=== PATIENT | male | born 1970 | race Caucasian/White ===

== ENCOUNTER → 2016-07-16 | Outpatient (CLI) | payer OTHER ==
[~2016-07-16] MED LIST: ACET-1256 PO; AMOX875T PO; CGN5X PO; CLON0.5T3 PO; CTP1CL PO; FEXO1TAB49 PO; HYDR-5688 PO; HYDR2.5C37 TOP; IBUP-1050 PO; MULT-513 PO; OXYC-57 PO; PRED10TA PO; SNG10 PO; TRAZ50TA35 PO; VENL150T33 PO; VENL75CA73 PO; [UNRECOGNIZED DRUG - REMARK]
--- NOTE | 2016-07-16 13:55 | DIAGNOSTIC IMAGING REPORT ---
SINUSES MIN 3 VIEWS ROUTINE CLINICAL HISTORY: J32.9 Chronic sinusitis pain COMPARISON STUDY: 03/12/2013 FINDINGS: Negative study. All major sinuses are clear. IMPRESSION: Negative study Electronically signed by: Eugene Mayo M.D. 07/16/2016 1:53 PM Dictated Date/Time: 07/16/2016 1:53 PM
== END | disposition home or self-care (01) ==
LOC: C.RAD1850 13:40
PROVIDERS: ATTEND Internal Medicine
DX: J32.9 Chronic sinusitis, unspecified (principal)

== ENCOUNTER 2016-09-12 19:21 | Emergency (ER) | payer OTHER ==
[~2016-09-12] VITALS: Ht 193 cm; Wt 109.0 kg
[~2016-09-12 19:21] MED LIST changes: -AMOX875T PO; -CGN5X PO; -CTP1CL PO; -FEXO1TAB49 PO; -HYDR-5688 PO; -OXYC-57 PO; -PRED10TA PO; -SNG10 PO; -TRAZ50TA35 PO; -VENL150T33 PO; -VENL75CA73 PO; -[UNRECOGNIZED DRUG - REMARK]
[2016-09-12 19:28] VITALS: BP 150/107; PULSE 93; TEMP 36.6; O2SAT 97; Ht 193 cm; Wt 109.0 kg
[2016-12-18] MEDS ORDERED: [UNRECOGNIZED DRUG - REMARK] (16:12)
[2017-01-22] MEDS ORDERED: HYDR-5688 PO (09:23)
[2017-05-15] MEDS ORDERED: BENZ0.5T2 PO (16:34)
[2017-05-15] MEDS ORDERED: TRAZ50TA35 PO (16:56)
[2017-05-15] MEDS ORDERED: CTP1CL PO (17:34)
[2017-05-15] MEDS ORDERED: SNG10 PO (17:34)
[2017-05-15] MEDS ORDERED: FEXO1TAB49 PO (17:37)
[2017-05-15] MEDS ORDERED: VENL75CA73 PO (18:20)
[2017-05-15] MEDS ORDERED: HYDR25TA5 PO (22:14)
[2017-05-15] MEDS ORDERED: CELE1CAP30 PO (22:14)
[2017-05-15] MEDS ORDERED: VENL150C56 PO (22:14)
[2017-05-16] MEDS ORDERED: DOXY100C PO (00:39)
== END 2016-09-12 21:14 | disposition left against medical advice (07) ==
LOC: C.EDB 19:23
DX: R07.9 Chest pain, unspecified (principal); Z53.21 Procedure and treatment not carried out due to patient leaving prior to being seen by health care provider

== ENCOUNTER → 2016-11-18 | Outpatient (CLI) | payer OTHER ==
[~2016-11-18] MED LIST changes: +AMOX875T PO; +BENZ0.5T2 PO; +CELE1CAP30 PO; +CTP1CL PO; +DOXY100C PO; +FEXO1TAB49 PO; +HYDR-5688 PO; +HYDR25TA5 PO; +OXYC-57 PO; +PRED10TA PO; +SNG10 PO; +TRAZ50TA35 PO; +VENL150C56 PO; +VENL150T33 PO; +VENL75CA73 PO; +[UNRECOGNIZED DRUG - REMARK]
--- NOTE | 2016-11-18 15:10 | DIAGNOSTIC IMAGING REPORT ---
CHEST 2 VIEWS ROUTINE CLINICAL HISTORY: COUGH COMPARISON STUDY: 04/27/2015 FINDINGS: The heart is mildly enlarged. There is no failure. There is no focal pulmonary consolidation. There is a suboptimal inspiration with hypoventilatory changes the lung bases. No pleural effusions are visualized.[ IMPRESSION: Mild cardiomegaly. Poor inspiration. No evidence of focal pulmonary consolidation. Electronically signed by: Devonte Ambriz M.D. 11/18/2016 3:09 PM Dictated Date/Time: 11/18/2016 3:09 PM
== END | disposition home or self-care (01) ==
LOC: C.RAD1850 14:37
PROVIDERS: ATTEND Physician Assistant Medical
DX: R05 Cough (principal)

== ENCOUNTER 2016-11-21 16:13 | Emergency (ER) | payer OTHER ==
[~2016-11-21] VITALS: Ht 190.5 cm; Wt 112.5 kg
[~2016-11-21 16:13] MED LIST changes: -AMOX875T PO; -BENZ0.5T2 PO; -CELE1CAP30 PO; -CTP1CL PO; -DOXY100C PO; -FEXO1TAB49 PO; -HYDR-5688 PO; -HYDR25TA5 PO; -OXYC-57 PO; -PRED10TA PO; -SNG10 PO; -TRAZ50TA35 PO; -VENL150C56 PO; -VENL150T33 PO; -VENL75CA73 PO; -[UNRECOGNIZED DRUG - REMARK]
[2016-11-21 16:20] VITALS: TEMP 36.6; Ht 190.5 cm; Wt 112.5 kg
[2016-11-21] MEDS ORDERED: ALBUTEROL 0.5% NEB SOLN 2.5 MG/0.5 ML VIAL INH STA (17:31)
[2016-11-21] MEDS ORDERED: ALBUTEROL HFA 8 GM INHALER INH STA (17:31)
[2016-11-21] MEDS ORDERED: HYDR-5688 PO (17:34)
[2016-11-21] MEDS ORDERED: AMOX875T PO (17:34)
[2016-11-21] MEDS ORDERED: VENL150T33 PO (17:34)
[2016-11-21] MEDS ORDERED: PRED10TA PO (17:34)
[2016-11-21] MEDS ORDERED: SODIUM CHLORIDE 0.9% 1000ML 1,000 ML IV STA (17:47)
[2016-11-21 17:55] LABS: BASO % 0.3 %; BASO ABS # 0.03 K/uL (0-0.2); COMPLETE YES; EOS % 0.1 %; HEMATOCRIT 43.8 % (42-52); IG% 0.2 %; LYMPH % 18.8 %; LYMPH ABS # 1.69 K/uL (1.2-3.4); MEAN CELL VOLUME 88.3 fL (80-100); MEAN CORPUSCULAR HEMOGLOBIN 31.3 pg (25-34); MEAN CORPUSCULAR HGB CONC 35.4 g/dl (32-36); MEAN PLATELET VOLUME 11.4 fL (7.4-10.4); MONO % 6.9 %; NEUT % 73.7 %; PLATELET COUNT 230 K/uL (130-400); RED BLOOD COUNT 4.96 M/uL (4.7-6.1); WHITE BLOOD COUNT 8.97 K/uL (4.8-10.8)
[2016-11-21 18:05] VITALS: O2SAT 96
[2016-11-21 18:12] LABS: ALT/SGPT 88 U/L (12-78); AST/SGOT 45 U/L (15-37); BLOOD UREA NITROGEN 16 mg/dl (7-18); BUN/CREATININE RATIO 17.1 (10-20); CALCIUM 8.9 mg/dl (8.5-10.1); CARBON DIOXIDE 26 mmol/L (21-32); CHLORIDE 105 mmol/L (98-107); CREATININE 0.93 mg/dl (0.60-1.40); GLUCOSE 95 mg/dl (70-99); POTASSIUM 4.3 mmol/L (3.5-5.1); SODIUM 140 mmol/L (136-145)
[2016-11-21 18:17] LABS: ALKALINE PHOSPHATASE 74 U/L (45-117)
--- NOTE | 2016-11-21 18:39 | DIAGNOSTIC IMAGING REPORT ---
HEAD CT NONCONTRAST CT DOSE: 537.48 mGy.cm HISTORY: Pt c/o sinus pressure TECHNIQUE: Multiaxial CT images of the head were performed without the use of intravenous contrast. Comparison: None. Findings: The paranasal sinuses and mastoid air cells are clear. The calvarium and skull base are intact. The ventricles and sulci are within normal limits. There is no mass, hematoma, midline shift, or acute infarct. Impression: No acute intracranial abnormality. Minimal mucosal thickening left ethmoid sinus Electronically signed by: Eugene Mayo M.D. 11/21/2016 6:38 PM Dictated Date/Time: 11/21/2016 6:37 PM
[2016-11-21] MEDS ORDERED: OXYC-57 PO (19:08)
[2016-11-21] MEDS ORDERED: PERCOCET HOME PACK PO ONE ×2 (19:15)
--- NOTE | 2016-11-21 19:42 | EMERGENCY ROOM VISIT NOTE ---
History Report prepared by Lolis: Mague Cook Under the Supervision of: Dr. Larry Graham M.D. First contact with patient: 17:01 Chief Complaint: HEAD PAIN Stated Complaint: SEVERE PAIN IN HEAD, FEVER History of Present Illness The patient is a 46 year old male who presents to the Emergency Room with complaints of persistent head pain starting 1 week ago. He reports heat and pressure in his head and spreading into his face. He rates his discomfort as a 7 /10 in severity. His face is bloated, red, and hot to touch. He has a headache. It is not the worse headache of his life. He reports he is trying to stop drinking coca cola which is leading him to have headache. He also notes that he is dehydrated and his urine is orange-yellow. He is trying to drink more water, but is still dehydrated. He reports chest tightness and "jittering" in his chest. He denies any rhinorrhea. He was started on prednisone and antibiotics for a sinus infection several days ago. He also had a chest X-ray which was normal. He reports he has many issues with his sinuses and allergies. He is being taken off his allergy shots. He denies any history of smoking. Source of History: patient Onset: 1 week ago Position: head Symptom Intensity: 7/10 Quality: pressure Timing: other (persistent) Associated Symptoms: + fevers, + headache Note: Pt reports dark urine, chest tightness and jittering, facial bloating. Pt denies rhinorrhea. Review of Systems See HPI for pertinent positives & negatives. A total of 10 systems reviewed and were otherwise negative. Past Medical & Surgical Medical Problems: (1) Appendectomy (2) Operation on nasal septum Family History Cancer Diabetes mellitus Hypertension Social History Smoking Status: Never Smoker Marital Status: Housing Status: lives with significant other Occupation Status: employed Current/Historical Medications Scheduled Amoxicillin & Pot Clavulanate (Augmentin 875-125 mg), 1 TAB PO BID Benztropine Mesylate (Benztropine Mesylate), 0.5 MG PO TID Clonidine Hcl (Catapres), 0.2 MG PO QPM Fexofenadine Hcl (Cecily Allergy), 180 MG PO QAM Montelukast Sod (Montelukast Sodium), 10 MG PO HS Prednisone (Prednisone), 10 MG PO UD Trazodone Hcl (Trazodone), 25 MG PO HS Venlafaxine Hcl (Venlafaxine Extended Rel), 75 MG PO DAILY Venlafaxine Hcl (Venlafaxine Hcl Er), 150 MG PO DAILY Scheduled PRN Hydrocodone/Acetaminophen 5MG/325MG (Garvin 5MG/325MG), 1 TAB PO Q6H PRN for Pain Oxycodone/Acetaminophen 5MG/325MG (Percocet 5MG/325MG), 1-2 TAB PO Q4H PRN for Pain Allergies Coded Allergies: Ibuprofen (Verified Allergy, Intermediate, LIPS SWELL, 04/07/16) BRAND ONLY Nut Tree (Unverified Allergy, Unknown, LIPS SWELLING, 04/07/16) Uncoded Allergies: FRUITS FROM A TREE (Allergy, Intermediate, LIPS SWELL, 05/02/14) "ANYTHING FROM A TREE" Physical Exam Vital Signs Date Time Temp Pulse Resp B/P (MAP) Pulse Ox O2 Delivery O2 Flow Rate FiO2 11/21/16 19:53 69 19 153/107 97 Room Air 11/21/16 18:39 79 18 164/104 95 Room Air 11/21/16 18:05 96 Room Air 11/21/16 16:20 36.6 88 18 141/94 96 Room Air Physical Exam GENERAL: Patient is a healthy-appearing well-nourished HEAD: Normocephalic atraumatic EYES: Ocular movements intact pupils equal and react to light OROPHARYNX mucous membranes are moist no exudates present no erythema or edema present NECK: Supple no nuchal rigidity. No evidence of meningitis or encephalitis. CHEST: Good equal expansion LUNGS: Clear and equal to auscultation CARDIAC: Normal S1 and S2 ABDOMEN: Soft nontender no guarding BACK: No CVA tenderness EXTREMITIES: No pain upon palpation normal muscle strength in all groups no clubbing cyanosis or edema NEURO: Patient is following commands is answering questions appropriately. Alert and oriented x3 Cranial Nerves 2-12 grossly intact Medical Decision & Procedures ER Provider Diagnostic Interpretation: Radiology results as stated below per my review and radiologist interpretation: HEAD CT NONCONTRAST CT DOSE: 537.48 mGy.cm HISTORY: Pt c/o sinus pressure TECHNIQUE: Multiaxial CT images of the head were performed without the use of intravenous contrast. Comparison: None. Findings: The paranasal sinuses and mastoid air cells are clear. The calvarium and skull base are intact. The ventricles and sulci are within normal limits. There is no mass, hematoma, midline shift, or acute infarct. Impression: No acute intracranial abnormality. Minimal mucosal thickening left ethmoid sinus Electronically signed by: Eugene Mayo M.D. 11/21/2016 6:38 PM Dictated Date/Time: 11/21/2016 6:37 PM Laboratory Results 11/21/16 17:45 Red Blood Count 4.96, Mean Corpuscular Volume 88.3, Mean Corpuscular Hemoglobin 31.3, Mean Corpuscular Hemoglobin Concent 35.4, Mean Platelet Volume 11.4, Neutrophils (%) (Auto) 73.7, Lymphocytes (%) (Auto) 18.8, Monocytes (%) (Auto) 6.9, Eosinophils (%) (Auto) 0.1, Basophils (%) (Auto) 0.3, Neutrophils # (Auto) 6.60, Lymphocytes # (Auto) 1.69, Monocytes # (Auto) 0.62, Eosinophils # (Auto) 0.01, Basophils # (Auto) 0.03 11/21/16 17:45 Test 11/21/16 17:45 White Blood Count 8.97 K/uL (4.8-10.8) Red Blood Count 4.96 M/uL (4.7-6.1) Hemoglobin 15.5 g/dL (14.0-18.0) Hematocrit 43.8 % (42-52) Mean Corpuscular Volume 88.3 fL (80-100) Mean Corpuscular Hemoglobin 31.3 pg (25-34) Mean Corpuscular Hemoglobin Concent 35.4 g/dl (32-36) Platelet Count 230 K/uL (130-400) Mean Platelet Volume 11.4 fL (7.4-10.4) Neutrophils (%) (Auto) 73.7 % Lymphocytes (%) (Auto) 18.8 % Monocytes (%) (Auto) 6.9 % Eosinophils (%) (Auto) 0.1 % Basophils (%) (Auto) 0.3 % Neutrophils # (Auto) 6.60 K/uL (1.4-6.5) Lymphocytes # (Auto) 1.69 K/uL (1.2-3.4) Monocytes # (Auto) 0.62 K/uL (0.11-0.59) Eosinophils # (Auto) 0.01 K/uL (0-0.5) Basophils # (Auto) 0.03 K/uL (0-0.2) RDW Standard Deviation 39.6 fL (36.4-46.3) RDW Coefficient of Variation 12.4 % (11.5-14.5) Immature Granulocyte % (Auto) 0.2 % Immature Granulocyte # (Auto) 0.02 K/uL (0.00-0.02) Anion Gap 9.0 mmol/L (3-11) Est Creatinine Clear Calc Drug Dose 132.9 ml/min Estimated GFR () 112.9 Estimated GFR (Non- 97.4 BUN/Creatinine Ratio 17.1 (10-20) Calcium Level 8.9 mg/dl (8.5-10.1) Total Bilirubin 0.3 mg/dl (0.2-1) Direct Bilirubin 0.1 mg/dl (0-0.2) Aspartate Amino Transf (AST/SGOT) 45 U/L (15-37) Alanine Aminotransferase (ALT/SGPT) 88 U/L (12-78) Alkaline Phosphatase 74 U/L (45-117) Total Creatine Kinase 73 U/L (39-308) Creatine Kinase MB 0.7 ng/ml (0.5-3.6) Creatine Kinase MB Ratio 1.0 (0-3.0) Troponin I < 0.015 ng/ml (0-0.045) Total Protein 8.2 gm/dl (6.4-8.2) Albumin 4.2 gm/dl (3.4-5.0) Lipase 146 U/L (73-393) Labs reviewed by ED physician. Medications Administered Medications (Trade) Dose Ordered Sig/Jessica Route Start Time Stop Time Status Last Admin Dose Admin Albuterol (Ventolin Hfa Inhaler) 2 puffs NOW STAT INH 11/21/16 17:31 11/21/16 17:34 DC 11/21/16 17:31 2 PUFFS Albuterol Sulfate (Ventolin 0.5% 2.5MG/0.5ML Neb) 2.5 mg NOW STAT INH 11/21/16 17:31 11/21/16 17:34 DC 11/21/16 17:31 2.5 MG Sodium Chloride 1,000 ml @ 999 mls/hr Q1H1M STAT IV 6/8/17 17:47 11/21/16 18:47 DC 11/21/16 17:47 999 MLS/HR Oxycodone/ Acetaminophen (Percocet 5/ 325MG Home Pack) 1 homepack UD ONCE PO 11/21/16 19:15 11/21/16 19:16 DC 11/21/16 19:51 1 HOMEPACK ECG Indication: chest pain Rate (beats per minute): 74 Rhythm: normal sinus Findings: no acute ischemic change, no ectopy ED Course 1724: Past medical records reviewed. The patient was evaluated in room C4. A complete history and physical examination was performed. 1730: Albuterol Sulfate 2.5 mg INH, Albuterol 2 puffs INH. 1746: NSS 1000 ml @ 999 mls/hr IV. 1909: Upon reexamination the patient is resting comfortably. I discussed results and treatment plan with the patient. He verbalizes agreement and understanding. The patient is ready for discharge. 1914: Oxycodone/Acetaminophen 1 homepack PO, Oxycodone/Acetaminophen 1 homepack PO. Medical Decision Differential diagnosis: Etiologies such as migraine headache, meningitis, sinusitis, CO exposure, ICH, SAH, infection, tumor, headache, sinus thrombosis, arterial dissection, as well as others were entertained. Medication Reconciliation: I attest that I have personally reviewed the patient' s current medication list Blood Pressure Screening: Patient was found to have an elevated blood pressure and was referred to their primary care doctor for recheck and further treatment This is a 46-year-old male who presents emergency department complaining of sinusitis-like pressure. The patient has no evidence of meningitis encephalitis on examination. He is coughing therefore he was given an albuterol inhaler along with up-year-old treatment. Repeat examination revealed improvement the patient's symptoms. The patient is already on Augmentin as well as prednisone. I agree that the patient should continue taking this along with his allergy medication. I recommended follow-up with your nose and throat. I will note that the patient is afebrile here and has a normal white blood cell count. I recommended the patient return to the emergency department he develops severe head and neck pain. Patient and are in agreement with the treatment plan. Impression Primary Impression: Sinusitis Scribe Attestation The scribe's documentation has been prepared under my direction and personally reviewed by me in its entirety. I confirm that the note above accurately reflects all work, treatment, procedures, and medical decision making performed by me. Departure Information Dispostion Home / Self-Care Prescriptions Oxycodone/Acetaminophen 5MG/325MG (PERCOCET 5MG/325MG) Tab 1-2 TAB PO Q4H Y for Pain, #14 TAB Prov: Larry Graham MD 11/21/16 Referrals Usman James M.D. (PCP) Lulú Mccormick M.D. Fredy Stafford M.D. Forms HOME CARE DOCUMENTATION FORM, IMPORTANT VISIT INFORMATION, WORK / SCHOOL INSTRUCTIONS Patient Instructions ED Sinusitis Abx Tx, My [facility], Sinusitis Causes, Sinusitis Prevent, Sinusitis Self Care Additional Instructions Follow up with Dr Mccormick's office Use inhaler twice every 6 hours Continue other medicines as prescibed You were found to have an elevated blood pressure today (>120 sytolic or >90 diastolic). Per medicare guidelines, you need to follow up with this blood pressure screening with your Primary Care Physician (PCP). For a new PCP call [phone]. You received narcotic or benzodiazepene medication while in the emergency room today. Do not drive, operate heavy machinery, or drink alcohol under the influence of this medication. Take 600 mg Ibuprofen every 6 hours Take Percocet for breakthrough pain You have been examined and treated today on an emergency basis only. This is not a substitute for, or an effort to provide, complete comprehensive medical care. It is impossible to recognize and treat all injuries or illnesses in a single emergency department visit. It is therefore important that you follow up closely with Dr James. Call as soon as possible for an appointment. Thank you for your time and consideration. I look forward to speaking with you again soon. Please don't hesitate to call us if you have any questions. Problem Qualifiers Primary Impression: Sinusitis Sinusitis location: ethmoidal Chronicity: unspecified Qualified Codes: J32.2 - Chronic ethmoidal sinusitis
[2016-11-21 19:53] VITALS: BP 153/107; PULSE 69; O2SAT 97
[2016-12-18] MEDS ORDERED: [UNRECOGNIZED DRUG - REMARK] (16:12)
[2017-01-22] MEDS ORDERED: HYDR-5688 PO (09:23)
[2017-05-15] MEDS ORDERED: BENZ0.5T2 PO (16:34)
[2017-05-15] MEDS ORDERED: TRAZ50TA35 PO (16:56)
[2017-05-15] MEDS ORDERED: SNG10 PO (17:34)
[2017-05-15] MEDS ORDERED: CTP1CL PO (17:34)
[2017-05-15] MEDS ORDERED: FEXO1TAB49 PO (17:37)
[2017-05-15] MEDS ORDERED: VENL75CA73 PO (18:20)
[2017-05-15] MEDS ORDERED: VENL150C56 PO (22:14)
[2017-05-15] MEDS ORDERED: HYDR25TA5 PO (22:14)
[2017-05-15] MEDS ORDERED: CELE1CAP30 PO (22:14)
[2017-05-16] MEDS ORDERED: DOXY100C PO (00:39)
== END 2016-11-21 19:56 | disposition home or self-care (01) ==
LOC: C.EDB 16:13 → C.EDC 19:56
DX: J32.9 Chronic sinusitis, unspecified (principal); Z98.890 Other specified postprocedural states; Z79.899 Other long term (current) drug therapy; Z88.6 Allergy status to analgesic agent; Z91.018 Allergy to other foods; Z80.9 Family history of malignant neoplasm, unspecified; Z83.3 Family history of diabetes mellitus; Z82.49 Family history of ischemic heart disease and other diseases of the circulatory system

== ENCOUNTER → 2017-01-22 | Day surgery (SDC) | payer OTHER ==
[2016-12-18 15:41] VITALS: BMI 29.0
--- NOTE | 2017-01-21 18:37 | HISTORY & PHYSICAL EXAMINATION ---
DATE OF ADMISSION: 01/22/2017 CHIEF COMPLAINT: Chronic left knee pain. HISTORY OF PRESENT ILLNESS: This is a 46-year-old male patient of Dr. Galvez, complaining of chronic left knee pain, longstanding, now progressively getting worse. The patient has failed conservative treatment including anti-inflammatories and physical therapy. The patient has been diagnosed with left knee pain with loose body and arthritis. The patient wishes to proceed with a left knee arthroscopy, removal of loose body and chondroplasty. PAST MEDICAL HISTORY: Hypertension, hypercholesterolemia, and anxiety. SOCIAL HISTORY: Nonsmoker and nondrinker. FAMILY HISTORY: Noncontributory. PAST SURGICAL HISTORY: Left knee surgery. MEDICATIONS: 1. Effexor 175 mg daily. 2. Trazodone 50 mg daily. 3. Clonidine 0.1 mg daily. 4. benztropine 0.5 mg daily. ALLERGIES: MOTRIN. PHYSICAL EXAMINATION: GENERAL: Well-developed and well-nourished 46-year-old male in no acute distress. He is alert and oriented x3 and pleasant. HEENT: Normocephalic and atraumatic. Extraocular motions are intact. Pupils are equal and reactive to light. HEART: Regular rate and rhythm. No murmurs appreciated. LUNGS: Clear. ABDOMEN: Soft and nontender. Bowel sounds present. EXTREMITIES: Left knee reveals medial joint line tenderness with passive painful range of motion. He has crepitation with passive range of motion. He has 5/5 strength with pain. NEUROLOGIC: Neurovascularly, he is intact in his left lower extremity. DIAGNOSES: Left knee osteoarthritis with the presence of loose bodies. He also has a history of hypertension, hypercholesterolemia, and anxiety. PLAN: The patient was advised of his diagnoses. Indications, risks, benefits, and postop course have all been reviewed. The patient wishes to proceed with a left knee arthroscopic loose body removal and chondroplasty. Necessary consent forms, preoperative testing and clearances will be obtained. JODEE
[~2017-01-22] VITALS: Ht 193 cm; Wt 109.1 kg
[~2017-01-22] MED LIST changes: -ACET-1256 PO; +ATROPINE SULFATE 0.1 MG/ML 5ML SYR IV PRN; +BUPIVACAINE/EPINEPHRINE 0.5% MPF 1:200,000 10 ML VIAL ONE; +CEFAZOLIN 2000 MG/60 ML D5W IV SCH; +CGN5X PO; -CLON0.5T3 PO; +CTP1CL PO; +DEXAMETHASONE SOD INJ 4 MG/ML VIAL ONE; +EpHEDrine SULFATE INJ 50 MG/ML AMP IV PRN; +FENTANYL CITRATE INJ 50 MCG/1 ML 2 ML VIAL IV PRN; +FENTANYL CITRATE INJ 50 MCG/1 ML 2 ML VIAL ONE; +FEXO1TAB49 PO; +HYDR-5688 PO; -HYDR2.5C37 TOP; +HYDROCODONE/ACETAMOPHEN 5/325MG TAB PO PRN; -IBUP-1050 PO; +LACTATED RINGER'S 1000ML 1,000 ML IV SCH; +LIDOCAINE HCL 2% 2 ML VIAL (20MG/ML) ONE; +MIDAZOLAM HCL 1 MG/ML 2ML VIAL ONE; -MULT-513 PO; +MoRPHine SULFATE 2 MG/ML CARP IV PRN; +ONDANSETRON INJ 2 MG/ML 2 ML VIAL IV PRN; +ONDANSETRON INJ 2 MG/ML 2 ML VIAL ONE; +PROPOFOL IV EMULSION 10 MG/ML 20 ML VIAL IV ONE; +SNG10 PO; +TRAZ50TA35 PO; +VENL150T33 PO; +VENL75CA73 PO; +[UNRECOGNIZED DRUG - REMARK]
[2017-01-22 05:47] VITALS: BP 148/97; PULSE 66; TEMP 36.4; O2SAT 95; Ht 193 cm; Wt 109.1 kg
--- NOTE | 2017-01-22 07:11 | History & Physical Bridge Note ---
H&P Re-Evaluation Bridge Note: I have examined the patient, reviewed the History & Physical and in the interval since the performance of the History & Physical I have noted the following changes of clinical significance: No changes noted
--- NOTE | 2017-01-22 07:20 | Discharge Instructions ---
Discharge Instructions Date of Service Jan 22, 2017. Visit Reason for Visit: Left Knee Loose Body, Primary Osteoarthritis Discharge Discharge Diagnosis / Problem: Left Knee Loose Body; Osteoarthritis Discharge Goals Goal(s): Decrease discomfort, Improve function Activity Recommendations Activity Limitations: per Instructions/Follow-up section Weightbearing Status: Left weightbearing (as tolerated) ACTIVITY RECOMMENDATIONS: * You may walk on the leg with or without crutches as comfort permits. * Bending of the knee should start at once. * Do not shower for 48 hours following surgery. SPECIAL CARE INSTRUCTIONS: * You may cleanse the skin adjacent to the small wounds with soap and water at the time of the first dressing change. * The application of an ice bag to the front and sides of the knee will decrease swelling and discomfort for the first 48 hours. * The small incisions may be sore and develop bruising. This bruising does not require any special care. SPECIAL PRECAUTIONS: * If you experience unusual pain unrelieved by prescriptions, temperature elevation (100 degrees F. or above) or progressive swelling or bleeding, you should contact our office at for further evaluation. * You may have been prescribed pain medication. If you experience nausea and/or fine skin rash, discontinue this medication and contact our office at for an alternate medication. DRESSING: * Dressing should be comfortable and absorb any leakage of fluid and/or blood. * The dressing may become moist or bloodstained. * Dressing may be removed 48 hours after surgery and bandaids placed over the small surgical incisions. If can be removed sooner if it becomes very soiled or loose. * Bandaids may be used over next several days as needed and can be discontinued when there is not further drainage from the wounds. FOLLOW UP VISIT: If appointment is not already scheduled: Please call [facility] to make a follow-up appointment for your surgery at . Anesthesia . Post Anesthesia Instructions: If you have had General Anesthesia or IV Sedation: * Do not drive today. * Resume driving when surgeon permits. * Do not make important decisions or sign legal documents today. * Call surgeon for: 1. Temperature elevations greater than 101 degrees F. 2. Uncontrollable pain. 3. Excessive bleeding. 4. Persistent nausea and vomiting. 5. Medication intolerance (nausea, vomiting or rash). * For nausea and vomiting use only clear liquids such as: tea, soda, bouillon until nausea subsides, then gradually increase diet as tolerated. * If you have any concerns or questions, call your surgeon's office. If physician is unavailable and it is an emergency, call 911 or go to the nearest emergency room. . Diet Recommendations Recommended Home Diet: resume previous diet Pending Studies Studies pending at discharge: no Medical Emergencies . Who to Call and When: Medical Emergencies: If at any time you feel your situation is an emergency, please call 911 immediately. . Non-Emergent Contact Non-Emergency issues call your: Surgeon Call Non-Emergent contact if: temperature is above 101.5, your pain is not controlled, your pain is worsening, wound has increased drainage, wound has increased redness . . "Provider Documentation" section prepared by Fidel Boyd. . [place] Drug Monitoring Program Search Results: patient reviewed within database, no issues identified
--- NOTE | 2017-01-22 08:41 | [facility] Post Operative Brief Note ---
Immediate Operative Summary Operative Date Jan 22, 2017. Pre-Operative Diagnosis Left knee osteoarthritis presence of loose bodies Post-Operative Diagnosis Left knee osteoarthritis presence of loose bodies Procedure(s) Performed Left Knee Arthroscopy Excision Loose Foreign Body Chondroplasty Surgeon Dr Galvez Oim Consultant Surgeon(s) None Estimated Blood Loss 5CC Findings 2 cm oval large loose body and grade 3-4 djd medial and patella Specimens As per Surgeon A. Loose Foreign Body Drains none Anesthesia general Complication(s) None Disposition Recovery Room / PACU
--- NOTE | 2017-01-22 08:47 | Discharge Instructions ---
Discharge Instructions Date of Service Jan 22, 2017. Admission Reason for Admission: Left Knee Loose Body, Primary Osteoarthritis Discharge Discharge Diagnosis / Problem: oa left knee loose body Discharge Goals Goal(s): Decrease discomfort, Improve function, Increase independence Activity Recommendations Activity Limitations: resume your previous activity . Instructions / Follow-Up Instructions / Follow-Up 8-10 dys Current Hospital Diet Patient's current hospital diet: Discharge Diet Recommended Diet: Regular Diet Procedures Procedures Performed: Left Knee Arthroscopy Excision Loose Foreign Body Chondroplasty Pending Studies Studies pending at discharge: no Work Instructions Return To Work: after follow-up Lifting Limitations: none Additional Instructions: off Medical Emergencies . Who to Call and When: Medical Emergencies: If at any time you feel your situation is an emergency, please call 911 immediately. . Non-Emergent Contact Non-Emergency issues call your: Primary Care Provider Call Non-Emergent contact if: temperature is above 101.5, your pain is not controlled, your pain is worsening, wound has increased drainage, wound has increased redness [phone] . "Provider Documentation" section prepared by Xavier Galvez. . VTE Core Measure Inpt VTE Proph given/why not?: Treatment not indicated [place] Drug Monitoring Program Search Results: no issues identified
[2017-01-22 09:38] VITALS: BP 157/94; PULSE 79; TEMP 36.7; O2SAT 93
[2017-01-22 10:10] VITALS: BP 151/88; PULSE 80; TEMP 36.7; O2SAT 94
[2017-01-22 10:35] VITALS: BP 140/87; PULSE 78; TEMP 36.5; O2SAT 95
--- NOTE | 2017-01-22 12:12 | Anesthesiology Progress Note ---
Anesthesia Post Op Note Date & Time Jan 22, 2017 at 12:11 Vital Signs Pain Intensity: 2 Vital Signs Past 12 Hours Date Time Temp Pulse Resp B/P (MAP) Pulse Ox O2 Delivery O2 Flow Rate FiO2 01/22/17 10:35 36.5 78 20 140/87 95 Room Air 01/22/17 10:10 36.7 80 18 151/88 94 Room Air 01/22/17 09:38 36.7 79 18 157/94 93 Room Air 01/22/17 09:25 36.6 78 16 134/89 94 Room Air Oxymask 01/22/17 09:15 78 16 127/86 93 Room Air Oxymask 01/22/17 09:05 76 16 154/100 95 Room Air Oxymask 01/22/17 08:55 79 16 149/100 97 Oxymask 10 01/22/17 08:45 76 16 149/99 97 Oxymask 10 01/22/17 08:37 36.3 80 16 154/97 99 Oxymask 10 01/22/17 05:47 36.4 66 20 148/97 (114) 95 Room Air Notes Mental Status: alert / awake / arousable, participated in evaluation Pt Amnestic to Procedure: Yes Nausea / Vomiting: adequately controlled Pain: adequately controlled Airway Patency, RR, SpO2: stable & adequate BP & HR: stable & adequate Hydration State: stable & adequate Anesthetic Complications: no major complications apparent
--- NOTE | 2017-01-22 22:08 | OPERATIVE REPORT ---
DATE OF OPERATION: 01/22/2017 INDICATION FOR PROCEDURE: A 46-year-old male with long history of left knee pain. He has had a previous procedure on his medial femoral condyle. He had a chronic medial femoral condyle lesion. He since the time of the surgery, has developed locking in his knee and radiographically appears to have a calcified loose body in the suprapatellar pouch. He has an MRI demonstrating subchondral bone edema in the area of the medial femoral condyle lesion, consistent with osteoarthritic lesion of his medial femoral condyle as well. The patient has had chronic locking and pain. He still has maintained joint spaces, but has some osteoarthritic changes in the medial compartment radiographically. PREOPERATIVE DIAGNOSIS: Osteoarthritis, left knee large osteochondral loose body, status post prior arthroscopic procedure on his medial femoral condyle, probable microfracture. POSTOPERATIVE DIAGNOSIS: Same with degenerative joint disease patellofemoral joint, medial compartment and lateral compartment with large loose body. Loose body measures 2 cm x 1.5 cm. PROCEDURE: Left knee arthroscopy with removal of large loose body 2 x 1.5 cm with chondroplasty medial compartment and patellofemoral joint. SURGEON: Dr. Galvez. DINKEY OPERATOR: None. ANESTHESIA: General. OPERATIVE PROCEDURE: The patient was taken to the operating room and anesthetized with general anesthetic. Pneumatic tourniquet was placed on the left upper thigh. His left leg was sterilely prepped and draped in usual sterile fashion. Exam demonstrated he had no effusion and stable ligaments. He had good range of motion still. His left lower extremity was elevated, exsanguinated with Esmarch bandage. Pneumatic tourniquet was raised to 325 mmHg. Arthroscopy was started with an inferior medial and inferior lateral arthroscopy portal and we made a superior lateral arthroscopy portal which we had to widen to remove the large loose body. On inspection of the knee, there was a large loose body in the suprapatellar pouch, it was completely mobile but it was osteochondral based on x-ray. It was large oval loose body, which was at least 2 cm in length and about 1.5 cm in width and thickness was about 4 mm. The patella had some grade 3 chondromalacia patellae in the central region. The medial femoral condyle and the patellofemoral joint was all grade 3 wear. The medial femoral condyle on the flexion surface had a large area of an osteochondral lesion that was previously there. There was fibrocartilage at its base, but there were very loose flaps of unstable fibrocartilage around the periphery of this lesion, under which there was a grade 4 DJD. Adjacent to the lesion, far medial side, there was a grade 3 wear. The cruciate ligaments were intact. The tibial plateau had significant cracks and fissures and 1 loose piece of articular cartilage that was completely unstable and this was about a 4-5 mm diameter grade 4 lesion underlying that. In the lateral compartment, there was grade 3 fraying toward the medial aspect of the tibial spine and lateral tibial plateau and the meniscus was normal and stable and lateral femoral condyle was intact with normal cartilage. The medial meniscus was also stable and intact with no tears. First thing we did was to make a superior lateral portal and widen that slightly with a hemostat. I was able to go ahead and grasp the loose body and remove it. Then we placed some stitches of nylon and an outflow cannula to help stop the fluid from extravasating. We did have a little fluid extravasation into the subcutaneous tissues there because of that. I went ahead and performed a chondroplasty of the grade 3 areas with a 4.5 resector blade and removed the loose flaps of the very unstable fibrocartilage around the outer rim of the lesion. Unfortunately, basically showed exposed bone underneath that. The loose fragment on the tibial plateau was removed. We split down all grade 3 areas on the patella and the femoral condyle, trochlear groove area. The knee was copiously irrigated and free of all debris. The knee was injected with 30 mL of Marcaine with epinephrine. Port sites were closed with nylon sutures. Sterile dressings were applied including an Fer wrap from the foot to the thigh and a compressive wrap about the operative knee. The patient tolerated the procedure well. I attest to the content of the Intraoperative Record and any orders documented therein. Any exception s are noted below.
== END | disposition home or self-care (01) ==
LOC: C.ACU 05:22
PROVIDERS: ATTEND Orthopaedic Surgery Sports Medicine
DX: M17.12 Unilateral primary osteoarthritis, left knee (principal); I10 Essential (primary) hypertension; E78.00 Pure hypercholesterolemia, unspecified; F41.9 Anxiety disorder, unspecified; Z79.899 Other long term (current) drug therapy

== ENCOUNTER → 2017-06-23 | Outpatient (CLI) | payer OTHER ==
[~2017-06-23] MED LIST changes: -ATROPINE SULFATE 0.1 MG/ML 5ML SYR IV PRN; +BENZ0.5T2 PO; -BUPIVACAINE/EPINEPHRINE 0.5% MPF 1:200,000 10 ML VIAL ONE; -CEFAZOLIN 2000 MG/60 ML D5W IV SCH; +CELE1CAP30 PO; -CGN5X PO; -DEXAMETHASONE SOD INJ 4 MG/ML VIAL ONE; -EpHEDrine SULFATE INJ 50 MG/ML AMP IV PRN; -FENTANYL CITRATE INJ 50 MCG/1 ML 2 ML VIAL IV PRN; -FENTANYL CITRATE INJ 50 MCG/1 ML 2 ML VIAL ONE; -HYDR-5688 PO; +HYDR25TA5 PO; -HYDROCODONE/ACETAMOPHEN 5/325MG TAB PO PRN; -LACTATED RINGER'S 1000ML 1,000 ML IV SCH; -LIDOCAINE HCL 2% 2 ML VIAL (20MG/ML) ONE; -MIDAZOLAM HCL 1 MG/ML 2ML VIAL ONE; -MoRPHine SULFATE 2 MG/ML CARP IV PRN; -ONDANSETRON INJ 2 MG/ML 2 ML VIAL IV PRN; -ONDANSETRON INJ 2 MG/ML 2 ML VIAL ONE; -PROPOFOL IV EMULSION 10 MG/ML 20 ML VIAL IV ONE; +VENL150C56 PO; -VENL150T33 PO; -[UNRECOGNIZED DRUG - REMARK]
== END | disposition home or self-care (01) ==
LOC: C.LAB1850 14:05
PROVIDERS: ATTEND Physician Assistant Medical
DX: K21.9 Gastro-esophageal reflux disease without esophagitis (principal); R21 Rash and other nonspecific skin eruption; B99.9 Unspecified infectious disease

== ENCOUNTER → 2017-07-03 | Outpatient (CLI) | payer OTHER ==
--- NOTE | 2017-07-03 14:21 | DIAGNOSTIC IMAGING REPORT ---
CHEST 2 VIEWS ROUTINE HISTORY: 47 years-old Male R05 [id number] acute cough COMPARISON: Chest radiograph 05/15/2017 TECHNIQUE: PA and lateral views of the chest FINDINGS: Cardiac silhouette is mildly enlarged. No pneumothorax or pleural effusion. There are hazy bibasilar opacities noted with the previously seen 9 mm left basilar nodule not identified. Bones of the chest appear grossly intact. IMPRESSION: Hazy subsegmental bibasilar opacities suggest atelectasis. The above report was generated using voice recognition software. It may contain grammatical, syntax or spelling errors. Electronically signed by: Mina Alvarez M.D. 07/03/2017 2:20 PM Dictated Date/Time: 07/03/2017 2:18 PM
--- NOTE | 2017-07-03 14:25 | DIAGNOSTIC IMAGING REPORT ---
SINUSES MIN 3 VIEWS ROUTINE CLINICAL HISTORY: J01.90 Acute sinusitis, recurrence not specified, unspecified lo COMPARISON STUDY: None FINDINGS: Fluid within the right maxillary sinus. All remaining sinuses are clear. No evidence for bony destructive process. IMPRESSION: Acute right maxillary sinusitis The above report was generated using voice recognition software. It may contain grammatical, syntax or spelling errors. Electronically signed by: Eugene Mayo M.D. 07/03/2017 2:24 PM Dictated Date/Time: 07/03/2017 2:19 PM
== END | disposition home or self-care (01) ==
LOC: C.RAD1850 14:02
PROVIDERS: ATTEND Internal Medicine
DX: J01.00 Acute maxillary sinusitis, unspecified (principal); R05 Cough

== ENCOUNTER → 2017-07-28 | Outpatient (CLI) | payer OTHER ==
[~2017-07-28] MED LIST changes: +ACET-1256 PO; +GUAI1LIQ7 PO; +MOXI1TAB7 PO
--- NOTE | 2017-07-28 07:29 | DIAGNOSTIC IMAGING REPORT ---
SINUS CT WITHOUT CONTRAST CLINICAL HISTORY: Chronic and acute sinusitis. COMPARISON STUDY: Maxillofacial CT April 07, 2016 and sinus radiographs July 03, 2017. Technique: Helical axial images of the sinuses were obtained without IV contrast. Coronal reformats were viewed. A dose lowering technique was utilized adhering to the principles of ALARA. CT DOSE: 661.22 mGy.cm FINDINGS: Visualized portions of the intracranial contents are unremarkable on this unenhanced exam. Mastoid air cells are clear. There is no fluid within the middle ears. The ossicles are intact. Orbits are unremarkable. Bilateral maxillary sinus air-fluid levels, right larger than left, are noted. There is moderate mucosal thickening of the maxillary sinuses. There is extensive mucosal thickening of the ethmoid sinuses as well as moderate mucosal thickening of the right frontal sinuses and mild mucosal thickening of the sphenoid sinuses. Right frontal sinus air-fluid level is present. Major drainage pathways are occluded by mucosal thickening. There is mild rightward deviation of the nasal septum with minimal spur formation. No bony destruction is present. No mass is identified on this unenhanced examination within sinuses or the nasal cavity. Cribriform plate is intact. IMPRESSION: 1. Extensive sinus mucosal thickening and air-fluid levels with findings suggestive of acute bilateral maxillary and right frontal sinusitis. Extensive ethmoid sinus mucosal thickening. 2. Occluded major drainage pathways due to mucosal thickening. 3. Mild rightward deviation of the nasal septum. Electronically signed by: Rikki Vincent M.D. 07/28/2017 7:28 AM Dictated Date/Time: 07/28/2017 7:15 AM
== END | disposition home or self-care (01) ==
LOC: C.CTS 06:44
PROVIDERS: ATTEND Internal Medicine
DX: J01.90 Acute sinusitis, unspecified (principal)

== ENCOUNTER 2017-07-29 06:54 | Emergency (ER) | payer OTHER ==
[~2017-07-29] VITALS: Ht 190.5 cm; Wt 112.0 kg
[~2017-07-29 06:54] MED LIST changes: -ACET-1256 PO; -GUAI1LIQ7 PO; -MOXI1TAB7 PO
[2017-07-29 06:55] VITALS: TEMP 36.7; Ht 190.5 cm; Wt 112.0 kg
[2017-07-29] MEDS ORDERED: GUAI1LIQ7 PO (07:41)
[2017-07-29] MEDS ORDERED: ACET-1256 PO (07:41)
[2017-07-29] MEDS ORDERED: MOXI1TAB7 PO (07:45)
[2017-07-29 07:59] VITALS: BP 145/75; PULSE 86; O2SAT 96
--- NOTE | 2017-07-29 08:01 | EMERGENCY ROOM VISIT NOTE ---
History First contact with patient: 07:00 Chief Complaint: FLU LIKE SX Stated Complaint: FLU,HIGH FEVER History of Present Illness The patient is a 47 year old male who presents to the Emergency Room with complaints of severe sinus congestion, fever 102F this morning, and cough. The patient reports a history of chronic sinusitis. He underwent rhinoplasty in 2011. The patient has had recurrent sinus infections, and was recently treated with Augmentin and steroids without any resolution. The patient reports that he has an appointment to see ENT at [facility] toward the end of this month. The patient reports that he has an appointment this afternoon with his PCP, Dr. James, but elected to come to the emergency department because of his fever. The patient reports a history of facial swelling with ibuprofen. He can tolerate Aleve, but has only been taking Tylenol for his fever. The patient has had a nonproductive cough as well. He rates his overall discomfort an 8 out of 10. Review of Systems 10 system review was performed and was negative except for pertinent positives and negatives as indicated in history of present illness Past Medical/Surgical History Medical Problems: (1) Appendectomy (2) Operation on nasal septum Family History Cancer Diabetes mellitus Hypertension Social History Smoking Status: Never Smoker Alcohol Use: occasionally Marital Status: Housing Status: lives with significant other Occupation Status: employed Current/Historical Medications Scheduled Benztropine Mesylate (Benztropine Mesylate), 0.5 MG PO TID Celecoxib (Celecoxib), 200 MG PO DAILY Clonidine Hcl (Catapres), 0.1 MG PO HS Fexofenadine Hcl (Cecily Allergy), 180 MG PO QAM Hydrochlorothiazide (Hydrochlorothiazide), 25 MG PO DAILY Montelukast Sod (Montelukast Sodium), 10 MG PO HS Moxifloxacin HCl (Moxifloxacin HCl), 400 MG PO DAILY Trazodone Hcl (Trazodone), 25 MG PO HS Venlafaxine Hcl (Venlafaxine Extended Rel), 75 MG PO QAM Venlafaxine Hcl (Effexor Extended Rel), 150 MG PO DAILY Miscellaneous Medications Acetaminophen (Tylenol), 1,000 MG PO Guaifenesin (Mucinex Chest Congestion), 200 MG PO Physical Exam Vital Signs Date Time Temp Pulse Resp B/P (MAP) Pulse Ox O2 Delivery O2 Flow Rate FiO2 07/29/17 06:55 36.7 92 18 141/84 95 Room Air Physical Exam CONSTITUTIONAL: Healthy and well nourished. Alert and oriented X 3 with positive affect. Patient does not appear toxic. HEENT: Normocephalic, atraumatic. Pupils equal, round and reactive. Ears and nares are otherwise clear. He has tenderness to palpation and percussion of the frontal and maxillary sinuses. NECK: Full active range of motion without discomfort. RESPIRATORY: Clear to auscultation bilaterally with no wheezing, crackles, rhonchi or stridor. CARDIOVASCULAR: Regular rate and rhythm with no murmurs, rubs or gallops. GASTROINTESTINAL: Bowel sounds present in all quadrants. Soft and nontender to palpation. MUSCULOSKELETAL: Full range of motion of all joints without discomfort. INTEGUMENTARY: No rash or other significant dermatologic conditions noted. NEUROLOGIC: No focal neurologic deficits noted. Medical Decision & Procedures ER Provider Diagnostic Interpretation: The patient did have a CT of the sinuses performed yesterday. I did review the CT images myself, along with the radiologist report: IMPRESSION: 1. Extensive sinus mucosal thickening and air-fluid levels with findings suggestive of acute bilateral maxillary and right frontal sinusitis. Extensive ethmoid sinus mucosal thickening. 2. Occluded major drainage pathways due to mucosal thickening. 3. Mild rightward deviation of the nasal septum. ED Course Patient history and physical exam were performed. Nurse's notes were reviewed. Vital signs were reviewed the patient is currently afebrile and not tachycardic. I also reviewed EMR documentation, showing that the patient underwent rhinoplasty in 2011. No interim surgical procedures have been performed. The patient reports that he has not followed with ENT since his prior rhinoplasty procedure. He did have a CT scan performed yesterday that shows chronic pansinusitis. The patient has failed antibody treatment at this time. The patient was advised that he will need to see ENT for definitive treatment, likely stenting. The patient denies any prior history of, or exposure to anyone with MRSA. I did elect to cover the patient with Avelox antibiotics. I did encourage the patient to keep his appointment today with his PCP to discuss further treatment options, including different nasal sprays, and need for repeat corticosteroid treatment, which at this point I do not feel is going to be that effective. He was encouraged to take Tylenol and Aleve as needed for pain and fever. I also explained to the patient that his symptoms could also be secondary to influenza; however, because of the duration of his recent symptoms, antiviral treatment is not recommended at this time. The patient was advised that Avelox would also cover for the small chance that he would have community-acquired pneumonia on the which again is not suspected. The patient was happy with plan of care, and voiced understanding of all discharge instructions. He was discharged with his who was also present during our conversation. Medical Decision See previous section Medication Reconcilliation Current Medication List: was personally reviewed by me Blood Pressure Screening Patient's blood pressure: Normal blood pressure Impression Primary Impression: Chronic recurrent sinusitis Departure Information Prescriptions Moxifloxacin HCl (Moxifloxacin HCl) 400 Mg Tab 400 MG PO DAILY for 10 Days, #10 TABS Prov: Tommy Trevizo PA 07/29/17 Referrals Usman James M.D. (PCP) Patient Instructions [facility]
== END 2017-07-29 08:00 | disposition home or self-care (01) ==
LOC: C.EDB 06:55 → C.EDA 08:00
DX: J01.41 Acute recurrent pansinusitis (principal); R50.9 Fever, unspecified

== ENCOUNTER → 2017-07-29 | Outpatient (CLI) | payer OTHER | END | disposition home or self-care (01) | LOC: C.LAB1850 16:02 | PROVIDERS: ATTEND Internal Medicine | DX: R09.81 Nasal congestion (principal) ==

== ENCOUNTER 2021-12-05 18:13 | Observation (INO) ==
[2021-12-05] MEDS ORDERED: SODIUM CHLORIDE 0.9% 1000ML 2,000 ML IV ONE (19:09)
[2021-12-05] MEDS ORDERED: oxyCODONE HCL IR 5 MG TAB (IMMEDIATE RELEASE) PO STA (19:09)
[2021-12-05] MEDS ORDERED: diazePAM 5 MG TABLET PO ONE (19:09)
[2021-12-05] MEDS ORDERED: ACETAMINOPHEN 1,000 MG/100 ML VIAL IV STA (19:09)
[2021-12-05] MEDS ORDERED: KETOROLAC TROMETHAMINE 15 MG/ML VIAL IV STA ×2 (19:09→23:01)
[2021-12-05] MEDS ORDERED: dexAMETHasone**PF** 10 MG/ML VIAL IV ONE (19:11)
[2021-12-05 20:16] LABS: Basophils # (auto) 0.03 K/uL (0-0.2); Basophils % (auto) 0.5 %; Eosinophils # (auto) 0.16 K/uL (0-0.5); Eosinophils % (auto) 2.7 %; Hematocrit (blood only) 37.6 % (42-52); Hemoglobin 13.4 g/dL (14.0-18.0); Immature Granulocytes # (auto) 0.01 K/uL (0.00-0.02); Immature Granulocytes % (auto) 0.2 %; Lymphocytes # (auto) 2.09 K/uL (1.2-3.4); Lymphocytes % (auto) 35.8 %; Mean Corpuscular Hgb Conc 35.6 g/dL (32-36); Mean Platelet Volume 11.5 fL (7.4-10.4); Monocytes # (auto) 0.51 K/uL (0.11-0.59); Monocytes % (auto) 8.7 %; Neutrophils # (auto) 3.03 K/uL (1.4-6.5); Neutrophils % (auto) 52.1 %; Platelet Count 206 K/uL (130-400); RDW Coefficient of Variation 12.3 % (11.5-14.5); RDW Standard Deviation 39.4 fL (36.4-46.3); Red Blood Count 4.32 M/uL (4.7-6.1); White Blood Count 5.83 K/uL (4.8-10.8)
[2021-12-05 20:54] LABS: Albumin Globulin Ratio 1.4 (0.9-2); Albumin Level 4.3 gm/dl (3.4-5.0); BUN Creatinine Ratio 20.9 (10-20); Bilirubin,Total 0.7 mg/dl (0.2-1.0); Calcium 9.4 mg/dl (8.5-10.1); Creatinine Clr Calc Pharmacy 109.3 ml/min; Est GFR (Non-African American) 76.8 ml/min; Phosphorus 3.8 mg/dl (2.5-4.9); Potassium 3.4 mmol/L (3.5-5.1); Total Protein 7.3 gm/dl (6.0-8.3)
[2021-12-05] MEDS ORDERED: OPTIRAY 320 100ml IV ONE (21:20)
--- NOTE | 2021-12-05 22:29 | Emergency Department Note ---
Impression & Plan Lumbar back pain with radiculopathy affecting right lower extremity, Right testicular pain, Lower abdominal pain, Opioid dependence, Chronic pain ED Provider Note NAME: SHANON BECK AGE: 51 SEX: M ARRIVES VIA: Ambulance INFORMANT: Patient, ED PROVIDER(S): Roshan Boothe MD CHIEF COMPLAINT: leg pain, groin pain, testicular pain, abdominal pain. PLAN: Disposition: Admit MEDICAL DECISION MAKING: The patient is a 51 years gentleman with a past medical history of chronic pain/lumbar radiculopathy, neuropathy who follows with the pain clinic on chronic oxycodone who presents to the emergency department via EMS accompanied by his for evaluation of worsening of his chronic right leg pain, groin pain, lower abdominal pain, right testicular pain. Patient reports he sees urology and gets a nerve block for pain from his hydrocele. He also follows with the pain clinic. He also has seen general surgery for bilateral inguinal hernias and he feels these hurt all the time as well. 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 He reports he "has nerve damage" from this remote fall. On arrival the patient is anxious appearing but no acute distress, afebrile stable vital signs. Abdomen is nontender without appreciable hernias. Testicular exam is unremarkable without discoloration, edema or tenderness to palpation. Cremasteric reflex is intact bilaterally. Range of motion of the right lower extremity limited secondary to patient's report of pain/burning in the anterior thigh. We did agree to proceed with evaluation of the patient's abdominal pain and scrotal pain however no indication for MRI at this time given he has no signs of cord compression. Patient was informed that we will provide his home oral oxycodone but there is no indication for IV narcotics for his chronic pain. He will be given anti-inflammatories as well as muscle relaxer. The patient and hi s ultimately seemed satisfied with this plan. WBC and platelets wnl. H/H similar to prior range of values. Chemistry without acidosis. BUN/Cr > 20 c/w patient's clinically dry appearance. Potassium 3.4 and otherwise electrolytes unremarkable. LFTs without significant abnormality. UA without convincing evidence of infection. CT abd/pelvis and scrotal US negative for acute process per preliminary [facility] report. Patient been feeling some improvement after initial treatment with IVF, apap, toradol, dexamethasone, vallum and his home oxycodone. However, the patient apparently fell in the bathroom after walking there with his 's assistance but had "accidentally" locked the door and when attempting to walk without assitance he reports he fell to the ground onto his right leg suffering pain in his right ankle, elbow, wrist, and hand. Upon returning to his [facility] he asked his RN if he could have "more pain medication now". This provider re- evaluated the patient and his right ankle, elbow, wrist, hand demostrated now evidence of trauma, i.e. no edema or discoloration. Plain films were performed and were negative for fracture per my preliminary review. Upon further discussion with the patient and his they described that it has become increasingly difficulty for the patient to manage at home and so they agree with plan for admission for further evaluation and management. Case was discussed with Dr. Burden, [facility] hospitalist, who will evaluate the patient for admis telly. Triage Nursing notes reviewed and agree them. Prior medical records reviewed Vital Signs: reviewed and remarkable for no significant abnormalities Differential diagnosis: Musculoskeletal, disc herniation, fracture, metastatic disease, cord compression, discitis, sciatica, cauda equina, infection, aortic disease, renal colic, gastrointestinal, as well as other pathologies. ER treatment provided: See below. Diagnostics interpreted by me: Cardiac Monitoring: An order for continuous cardiac monitoring was placed and demonstrated NSR, 87 bpm, no ectopy. Laboratory studies: See below Imaging studies: See below Consultation(s): Case was discussed with Dr. Burden [facility] hospitalist, who will evaluate the patient for admission. HPI: The patient is a 51 years gentleman with a past medical history of chronic pain/lumbar radiculopathy, neuropathy who follows with the pain clinic on chronic oxycodone who presents to the emergency department via EMS accompanied by his for evaluation of worsening of his chronic right leg pain, groin pain, lower abdominal pain, right testicular pain. Patient reports he sees urology and gets a nerve block for pain from his hydrocele. He also follows with the pain clinic. He also has seen general surgery for bilateral inguinal hernias and he feels these hurt all the time as well. 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 He reports he "has nerve damage" from this remote fall. ROS: See above HPI for pertinent positives & negatives. A total of 10 systems reviewed and were otherwise negative. VITALS:See Below PHYSICAL EXAMINATION: GENERAL: Awake, alert, anxious-appearing, in no distress, BMI 32.8. HENT: Normocephalic, atraumatic. Oropharynx with dry mucous membranes and otherwise unremarkable. EYES: Normal conjunctiva. Sclera non-icteric. NECK: Supple. No nuchal rigidity. FROM. No JVD. RESPIRATORY: Clear to auscultation. CARDIAC: Regular rate, normal rhythm. Extremities warm and well perfused. Pulses equal. ABDOMEN: Soft, non-distended. Nontender without appreciable hernias. No rebound or guarding. No masses. RECTAL: Deferred. : Testicular exam is unremarkable without discoloration, edema or tenderness to palpation. Cremasteric reflex is intact bilaterally. MUSCULOSKELETAL: Chest examination reveals no tenderness. The back is symmetrical on inspection without obvious abnormality. There is no CVA tenderness to palpation. No joint edema. LOWER EXTREMITIES: Calves are equal size bilaterally and non-tender. No edema. No discoloration. Range of motion of the right lower extremity limited secondary to patient's report of pain/burning in the anterior thigh. NEURO: No focal sensory or motor deficits noted. DTRs wnl. No clonus. SKIN: No rash or jaundice noted. ED COURSE: PDMP: Reviewed. 25 prescriptions, 9 prescribers. Roshan Boothe MD Past Med/Surg History Medical History Bilateral inguinal hernia Carpal tunnel syndrome of right wrist Cervical facet joint syndrome Cervical radiculopathy Degenerative disc disease Depression Esophageal reflux no meds History of concussion 2016 History of Lyme disease treated History of migraine Hypertension Lower abdominal pain Scoliosis Slow to wake up after anesthesia Surgical History H/O sinus surgery History of dental surgery Hx of appendectomy Hx of arthroscopic knee surgery left x2 2017 [facility] - L[facility] #5, no issues per record Operation on nasal septum (08/12/12) Family History Father Family history of diabetes mellitus Coronary heart disease Mother PONV (postoperative nausea and vomiting) Social History Smoking Status: Never smoker Second Hand Exposure: No; Hx Alcohol Use: No Hx Substance Use: No Preferred Language: Slovak Communication Ability: Effective Evaluation Advisor Required: No Beliefs That Will Affect Care: None marital status: Current Living Situation: Spouse and Family current occupational status: employed 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 How many Children do You have: 0 Feels Safe at Home: Yes during the past year weight has: remained stable Assistive Devices: Glasses Allergies Allergies Allergy/AdvReac Type Severity Reaction Status Date / Time apple Allergy Severe Swelling Verified 12/05/21 19:40 of Lip/Tongue/Throat ibuprofen [From Motrin] Allergy Severe Swelling Verified 12/05/21 19:40 of Lip/Tongue/Throat peach Allergy Severe Swelling Verified 12/05/21 19:40 of Lip/Tongue/Throat pear Allergy Severe Swelling Verified 12/05/21 19:40 of Lip/Tongue/Throat tree nut Allergy Severe Swelling Verified 12/05/21 19:40 of Lip/Tongue/Throat diclofenac Allergy Intermediate Itchiness Verified 12/05/21 19:40 and rash Home Meds Home Medications Medication Instructions Recorded Confirmed trazodone 50 mg tablet 25 mg PO HS 11/16/20 12/05/21 escitalopram oxalate 10 mg tablet 15 mg PO QAM 08/21/21 12/05/21 (Lexapro) sennosides 8.6 mg capsule (senna) 8.6 mg PO QAM PRN 08/21/21 12/05/21 baclofen 10 mg tablet 10 mg PO TID PRN 12/05/21 12/05/21 gabapentin 800 mg tablet 800 mg PO QID 12/05/21 12/05/21 oxycodone-acetaminophen 7.5 mg-325 1 tab PO QID PRN 12/05/21 12/05/21 mg tablet Previous Rx's Medication Instructions Recorded hydrochlorothiazide 25 mg tablet 25 mg PO QAM #90 tab 06/19/21 lidocaine 5 % topical patch 1 patch TOP DAILY PRN #15 ea 09/03/21 zafirlukast 10 mg tablet 20 mg PO BID #60 tab 11/13/21 Results & Data (ED) Vital Signs Vital Signs - 24 hr 12/05/21 18:22 12/05/21 19:30 12/05/21 21:00 Temperature 36.6 C 37.1 C 36.8 C Temperature Source Oral Oral Oral Pulse Rate 73 64 Pulse Rate [Apical] 64 65 Pulse Rhythm [Apical] Regular Regular Pulse Strength [Apical] Normal Normal Respiratory Rate 16 18 18 Respiratory Effort / Characteristics Non-Labored Spontaneous Non-Labored Spontaneous Respiratory Depth Normal Normal Respiratory Pattern Regular Regular Blood Pressure 126/73 Blood Pressure [Left Arm] 126/83 151/89 H Blood Pressure Mean 90 Blood Pressure Mean [Left Arm] 97 109 Blood Pressure Position [Left Arm] Lying Lying Pulse Oximetry 97 96 93 Oxygen Delivery Method Room Air Room Air Room Air Sepsis Recent Fever Within 48 Hours No Sepsis New/Unexplained Change in Mental Status No Sepsis Action Taken by Nursing No Action Required 12/05/21 23:00 12/06/21 01:00 Temperature 37.1 C Temperature Source Oral Pulse Rate Pulse Rate [Apical] 68 69 Pulse Rhythm [Apical] Regular Regular Pulse Strength [Apical] Normal Normal Respiratory Rate 18 18 Respiratory Effort / Characteristics Non-Labored Spontaneous Non-Labored Spontaneous Respiratory Depth Normal Normal Respiratory Pattern Regular Regular Blood Pressure Blood Pressure [Left Arm] 153/114 H 151/87 H Blood Pressure Mean Blood Pressure Mean [Left Arm] 127 108 Blood Pressure Position [Left Arm] Lying Lying Pulse Oximetry 97 97 Oxygen Delivery Method Room Air Room Air Sepsis Recent Fever Within 48 Hours Sepsis New/Unexplained Change in Mental Status Sepsis Action Taken by Nursing Laboratory Data Result diagrams: 12/05/21 20:00 12/05/21 20:00 Lab Results 12/05/21 12/05/21 12/05/21 Range/Units 20:00 20:00 20:00 WBC 5.83 (4.8-10.8) K/uL RBC 4.32 L (4.7-6.1) M/uL Hgb 13.4 L (14.0-18.0) g/dL Hct 37.6 L (42-52) % MCV 87.0 (80-100) fL MCH 31.0 (25-34) pg MCHC 35.6 (32-36) g/dL RDW Std Deviation 39.4 (36.4-46.3) fL RDW Coeff of Luís 12.3 (11.5-14.5) % Plt Count 206 (130-400) K/uL MPV 11.5 H (7.4-10.4) fL Immature Gran % (Auto) 0.2 % Neut % (Auto) 52.1 % Lymph % (Auto) 35.8 % [place] % (Auto) 8.7 % Eos % (Auto) 2.7 % Baso % (Auto) 0.5 % Neut # (Auto) 3.03 (1.4-6.5) K/uL Lymph # (Auto) 2.09 (1.2-3.4) K/uL [place] # (Auto) 0.51 (0.11-0.59) K/uL Eos # (Auto) 0.16 (0-0.5) K/uL Baso # (Auto) 0.03 (0-0.2) K/uL Immature Gran # (Auto) 0.01 (0.00-0.02) K/uL Sodium 138 (136-145) mmol/L Potassium 3.4 L (3.5-5.1) mmol/L Chloride 103 (98-107) mmol/L Carbon Dioxide 28 (21-32) mmol/L Anion Gap 7 (3-11) BUN 23 (6-23) mg/dl Creatinine 1.10 (0.6-1.4) mg/dl Est Cr Clr Drug Dosing 109.3 ml/min Est GFR ( Amer) 89.0 ml/min Est GFR (Non-Af Amer) 76.8 ml/min BUN/Creatinine Ratio 20.9 H (10-20) Glucose 87 (70-99(Fasting)) mg/dl Calcium 9.4 (8.5-10.1) mg/dl Phosphorus 3.8 (2.5-4.9) mg/dl Magnesium 2.0 (1.7-2.4) mg/dl Total Bilirubin 0.7 (0.2-1.0) mg/dl AST 20 (13-39) U/L ALT 20 (7-52) U/L Alkaline Phosphatase 54 (34-104) U/L C-Reactive Protein < 0.50 (0-0.5) mg/dl Total Protein 7.3 (6.0-8.3) gm/dl Albumin 4.3 (3.4-5.0) gm/dl Globulin 3.0 (2.5-4.0) gm/dl Albumin/Globulin Ratio 1.4 (0.9-2) Lipase 29 (11-82) U/L Procalcitonin (0-0.5) ng/ml Urine Color Urine Appearance (Clear) Urine pH (4.5-7.5) Ur Specific [place] (1.000-1.030) Urine Protein (Negative) Urine Glucose (UA) (Negative) Urine Ketones (Negative) Urine Blood (Negative) Urine Nitrite (Negative) Urine Bilirubin (Negative) Urine Urobilinogen (Negative) Ur Leukocyte Esterase (Negative) Anaplasma Smear See Comment Babesia Smear See Comment Lyme Disease IgG Ab (Negative) Lyme Disease IgM Ab (Negative) SARS-CoV-2, RNA, NAAT (NEGATIVE) 12/05/21 12/05/21 12/06/21 Range/Units 20:00 23:50 01:55 WBC (4.8-10.8) K/uL RBC (4.7-6.1) M/uL Hgb (14.0-18.0) g/dL Hct (42-52) % MCV (80-100) fL MCH (25-34) pg MCHC (32-36) g/dL RDW Std Deviation (36.4-46.3) fL RDW Coeff of Luís (11.5-14.5) % Plt Count (130-400) K/uL MPV (7.4-10.4) fL Immature Gran % (Auto) % Neut % (Auto) % Lymph % (Auto) % [place] % (Auto) % Eos % (Auto) % Baso % (Auto) % Neut # (Auto) (1.4-6.5) K/uL Lymph # (Auto) (1.2-3.4) K/uL [place] # (Auto) (0.11-0.59) K/uL Eos # (Auto) (0-0.5) K/uL Baso # (Auto) (0-0.2) K/uL Immature Gran # (Auto) (0.00-0.02) K/uL Sodium (136-145) mmol/L Potassium (3.5-5.1) mmol/L Chloride (98-107) mmol/L Carbon Dioxide (21-32) mmol/L Anion Gap (3-11) BUN (6-23) mg/dl Creatinine (0.6-1.4) mg/dl Est Cr Clr Drug Dosing ml/min Est GFR ( Amer) ml/min Est GFR (Non-Af Amer) ml/min BUN/Creatinine Ratio (10-20) Glucose (70-99(Fasting)) mg/dl Calcium (8.5-10.1) mg/dl Phosphorus (2.5-4.9) mg/dl Magnesium (1.7-2.4) mg/dl Total Bilirubin (0.2-1.0) mg/dl AST (13-39) U/L ALT (7-52) U/L Alkaline Phosphatase (34-104) U/L C-Reactive Protein (0-0.5) mg/dl Total Protein (6.0-8.3) gm/dl Albumin (3.4-5.0) gm/dl Globulin (2.5-4.0) gm/dl Albumin/Globulin Ratio (0.9-2) Lipase (11-82) U/L Procalcitonin 0.09 (0-0.5) ng/ml Urine Color Yellow Urine Appearance Clear (Clear) Urine pH 5.0 (4.5-7.5) Ur Specific [place] 1.029 (1.000-1.030) Urine Protein Negative (Negative) Urine Glucose (UA) Negative (Negative) Urine Ketones Negative (Negative) Urine Blood Negative (Negative) Urine Nitrite Negative (Negative) Urine Bilirubin Negative (Negative) Urine Urobilinogen Negative (Negative) Ur Leukocyte Esterase Negative (Negative) Anaplasma Smear Babesia Smear Lyme Disease IgG Ab Negative (Negative) Lyme Disease IgM Ab Negative (Negative) SARS-CoV-2, RNA, NAAT NEGATIVE (NEGATIVE) Administered Medications Acetaminophen (Acetaminophen 325 Mg Tab) 325 mg PO Q6H PIPPA Stop: 01/05/22 05:59 Last Admin: 12/06/21 05:40 Dose: 325 mg Documented by: [id number] Baclofen (Baclofen 10 Mg Tab) 10 mg PO TID PRN PRN Reason: MUSCLE SPASMS Stop: 01/05/22 04:06 Last Admin: 12/06/21 04:33 Dose: 10 mg Documented by: [id number] Lidocaine (Lidocaine 5% 1 Patch) 1 patch TD DAILY PRN PRN Reason: pain Stop: 01/05/22 04:06 Last Admin: 12/06/21 04:33 Dose: 1 patch Documented by: [id number] Oxycodone/Acetaminophen (Oxycodone/Apap 7.5/325mg Tab) 1 tab PO QID PRN PRN Reason: Pain Stop: 12/20/21 04:06 Last Admin: 12/06/21 04:49 Dose: 1 tab Documented by: [id number] Discontinued Medications Acetaminophen (Acetaminophen 325 Mg Tab) Confirm Administered Dose 325 mg .ROUTE .STK-MED ONE Stop: 12/06/21 00:51 Last Admin: 12/06/21 00:52 Dose: Not Given Documented by: [id number] Dexamethasone Sodium Phosphate (DexamethasonePf 10 Mg/Ml Vial) 10 mg IV NOW ONE Stop: 12/05/21 19:12 Last Admin: 12/05/21 20:03 Dose: 10 mg Documented by: [id number] Diazepam (Diazepam 5 Mg Tablet) 5 mg PO NOW ONE Stop: 12/05/21 19:10 Last Admin: 12/05/21 19:45 Dose: 5 mg Documented by: [id number] Diazepam (Diazepam 5 Mg Tablet) 5 mg PO NOW ONE Stop: 12/06/21 00:30 Last Admin: 12/06/21 00:51 Dose: 5 mg Documented by: [id number] Sodium Chloride (Nss 1000ml) 2,000 mls @ 999 mls/hr IV .Q2H1M ONE Stop: 12/05/21 21:09 Last Infusion: 12/05/21 21:09 Dose: 0 mls/hr Documented by: [id number] Admin: 12/05/21 20:03 Dose: 999 mls/hr Documented by: [id number] Acetaminophen (Ofirmev) 1,000 mg in 100 mls @ 400 mls/hr IV NOW STA Stop: 12/05/21 19:23 Last Infusion: 12/05/21 20:52 Dose: 0 mls/hr Documented by: [id number] Admin: 12/05/21 20:01 Dose: 400 mls/hr Documented by: [id number] Ioversol (Optiray 320 100ml) 94 ml IV ONCE ONE Stop: 12/05/21 21:21 Last Admin: 12/05/21 21:20 Dose: 94 ml Documented by: [id number] Ketorolac Tromethamine (Ketorolac Tromethamine 15 Mg/Ml Vial) 15 mg IV NOW STA Stop: 12/05/21 19:10 Last Admin: 12/05/21 20:02 Dose: 15 mg Documented by: [id number] Ketorolac Tromethamine (Ketorolac Tromethamine 15 Mg/Ml Vial) 15 mg IV NOW STA Stop: 12/05/21 23:02 Last Admin: 12/05/21 23:21 Dose: 15 mg Documented by: [id number] Ketorolac Tromethamine (Ketorolac Tromethamine 15 Mg/Ml Vial) 15 mg IV NOW STA Stop: 12/06/21 00:33 Last Admin: 12/06/21 00:51 Dose: 15 mg Documented by: [id number] Oxycodone HCl (Oxycodone Hcl Ir 5 Mg Tab (Immediate Release)) 5 mg PO NOW STA Stop: 12/05/21 19:10 Last Admin: 12/05/21 19:45 Dose: 5 mg Documented by: [id number] Oxycodone HCl (Oxycodone Hcl Ir 5 Mg Tab (Immediate Release)) 5 mg PO NOW STA Stop: 12/06/21 00:30 Last Admin: 12/06/21 00:51 Dose: 5 mg Documented by: [id number] Imaging Data My Impression: XR right ankle, elbow, wrist, hand without acute fracture per my preliminary review. Radiologist's Impression: Preliminary Findings Only See Final Report For Complete Findings US SCROTAL: Compared to 01/29/2021. Bilateral testes have normal appearance and vascular flow. No evidence for torsion or orchitis. Epididymi unremarkable. Small bilateral hydroceles. No varicosities. Radiologist: Alejandro Priest M.D. Study ready at 22:34 and initial results transmitted at 23:07 Preliminary Findings Only See Final Report For Complete Findings CT ABDOMEN & PELVIS With Contrast: Compared to 01/29/2021. No bowel obstruction or ileus. Mild retained stool throughout the colon. No evidence for appendicitis. Sigmoid colon diverticulosis without evidence for diverticulitis. No free fluid. Unchanged small fat-containing bilateral inguinal hernias. Unchanged mid abdominal mesenteric slight infiltration with subcentimeter lymph nodes, without discrete margins making mesenteric panniculitis less likely. Liver is hypodense/fatty. Gallbladder unremarkable without gallstones. No biliary ductal dilation. Pancreas is unremarkable. Spleen is unremarkable. No obstructive uropathy. Kidneys are unremarkable. Urinary bladder is unremarkable. No aortic aneurysm or dissection. Minimal atherosclerotic vascular calcifications. Bibasilar dependent atelectasis. Radiologist: Alejandro Priest M.D. Study ready at 21:34 and initial results transmitted at 21:52 Discharge Plan Visit Data Chief Complaint: Leg Injury/Pain Stated Complaint: right leg pain ED Provider: Roshan Boothe Discharge Problem: Lumbar back pain with radiculopathy affecting right lower extremity, Right testicular pain, Lower abdominal pain, Opioid dependence, Chronic pain Patient Disposition: Admitted As Inpatient Discharge Instructions Interventions: ED Discharge Assessment Last Done: 12/06/21 04:30 Discharge Problem: Opioid dependence Qualifiers: Substance use status: uncomplicated Qualified Code(s): F11.20 - Opioid dependence, uncomplicated Chronic pain Qualifiers: Chronic pain type: other chronic pain Qualified Code(s): G89.29 - Other chronic pain
[2021-12-06 00:21] LABS: Appearance Urine Clear (Clear); Bilirubin Urine Negative (Negative); Blood Urine Negative (Negative); Color Urine Yellow; Glucose Urine UA Negative (Negative); Ketones Urine Negative (Negative); Leukocyte Esterase Urine Negative (Negative); Nitrite Urine Negative (Negative); Protein Urine Negative (Negative); Specific Gravity Urine 1.029 (1.000-1.030); Urobilinogen Urine Negative (Negative)
[2021-12-06] MEDS ORDERED: diazePAM 5 MG TABLET PO ONE (00:29)
[2021-12-06] MEDS ORDERED: oxyCODONE HCL IR 5 MG TAB (IMMEDIATE RELEASE) PO STA (00:29)
[2021-12-06] MEDS ORDERED: KETOROLAC TROMETHAMINE 15 MG/ML VIAL IV STA (00:32)
[2021-12-06] MEDS ORDERED: ACETAMINOPHEN 325 MG TAB ONE (00:50)
--- NOTE | 2021-12-06 00:55 | History & Physical Report ---
Date of Service December 06, 2021 Assessment & Plan (1) Right testicular pain: Plan: 51yo male with chronic generalized pain, hydrocele, chronic sinusitis, bilateral inguinal hernias, and severe left knee osteoarthritis presents with a variety of complaints, primarily right groin pain. 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 [place] PDMP review shows patient's opioid prescriptions have been increasing in dose and frequency; suspect opioid hyperalgesia is playing a large role in current clinical picture Given worsening joint pain, will obtain tickborne illness titers, ESR, CRP, and peripheral smear Pain control plan: Lidocaine patch to back APAP 325mg PO q6h scheduled Ketorolac 15mg IV q6h scheduled Patient's home gabapentin (800mg qid prn) Patient's home vicodin (7.5/325mg) q6h prn moderate/severe pain No additional opioids Pain management consulted, recommendations appreciated PT/OT ordered Upon discharge, forward records to patient's [place] pain management team, as his pain contract with their practice requires disclosure of visits to other providers Right groin pain Patient with long history of right testicular pain, recently treated a few months ago with a spermatic cord injection done by urology Small right hydrocele seen on prior imaging, although per last urology note, they did not feel that it was large enough to cause any symptoms US scrotum: bilateral testes have normal appearance and vascular flow, no evidence for torsion or orchitis, epididymi unremarkable, small bilateral hydroceles, no varicosities CT a/p without acute findings; does note presence of small fat-containing bilateral inguinal hernias Suspect ongoing pain is multifactorial including opioid hyperalgesia, ?inguinal hernia component, ?spermatic cord involvement Imaging findings do not warrant further inpatient workup, outpatient follow-up recommended Right leg weakness, numbness, burning Patient reporting subjective right leg weakness, though my physical exam findings are inconsistent with staff observations (e.g. patient seen ambulating) MRI lumbar spine (2020) showing multilevel spondylitic change without evidence of moderate/severe spinal stenosis Repeat imaging not warranted based on the above Fall precautions Continue gabapentin Right ankle/elbow/wrist/hand pain secondary to mechanical fall Patient reportedly fell while in the bathroom of his ED room, saying he landed on his right side but did not hit his head XR ankle, elbow, wrist, and hand negative for acute fracture on my read; awaiting radiologist's read Pain control plan as above Bilateral inguinal hernias Identified on previous imaging, redemonstrated on today's CT a/p without no evidence of obstruction or strangulation Patient was seen by [facility] General Surgery a few months ago; recommend following up with their practice to discuss surgical repair Constipation: likely secondary to heavy opioid use; continue home senna HTN: continue home HCTZ MDD: continue home trazodone, escitalopram FEN: regular diet Code status: full code DVT ppx: SCDs Consults: pain management PT/OT: ordered Dispo: med/surg (2) Arthralgia of multiple joints: (3) Chronic pain of left knee: (4) Chronic shoulder pain: (5) Hypertension: (6) Lumbar back pain with radiculopathy affecting right lower extremity: History of Present Illness Primary Care Provider: Bridget Steward MD 51yo male with chronic generalized pain, hydrocele, chronic sinusitis, bilateral inguinal hernias, and severe left knee osteoarthritis presents with the primary complaint of right groin pain. Patient notes a long history of right groin pain that radiates down his right leg and up to his abdomen, noting his "right testicle feels like it's going to explode". 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 Patient also complains of bilateral lower back pain, worse on the right. Around 5:30pm this evening, patient's right leg "gave out" and he fell without injury, but then he started feeling nauseated before vomiting. This resolved after a few minutes. Patient does endorse mild SOB which he attributes to anxiety; this is normal for him when he feels anxious. Patient denies fever, chills, CP, diarrhea, dysuria, lightheadedness, dizziness, or other symptoms. Denies bowel/bladder incontinence or saddle anesthesia. Patient was evaluated by urology in August for his groin pain; they felt patient's hydrocele was unlikely causing any pain due to its small size. Patient underwent a spermatic cord injection to treat testicular pain, which patient reports "completely took away all of my pain for three months but then last week it all came back". Patient requests having this procedure done again here while in the hospital, as well as a variety of other studies and procedures including an MRI spine, EMG nerve studies, a bilateral inguinal hernia repair, and steroid injections for his neck, left shoulder, and lumbar spine. While in the ED, patient ambulated to the bathroom by himself, and reports that he fell once he was in the bathroom, landing on his right side. Patient says this is exacerbating his preexisting pain. After this occurred, XR right elbow + wrist + hand + ankle were obtained. Allergies Allergy/AdvReac Type Severity Reaction Status Date / Time apple Allergy Severe Swelling Verified 12/05/21 19:40 of Lip/Tongue/Throat ibuprofen [From Motrin] Allergy Severe Swelling Verified 12/05/21 19:40 of Lip/Tongue/Throat peach Allergy Severe Swelling Verified 12/05/21 19:40 of Lip/Tongue/Throat pear Allergy Severe Swelling Verified 12/05/21 19:40 of Lip/Tongue/Throat tree nut Allergy Severe Swelling Verified 12/05/21 19:40 of Lip/Tongue/Throat diclofenac Allergy Intermediate Itchiness Verified 12/05/21 19:40 and rash Home Medications Medication Instructions Recorded Confirmed Type trazodone 50 mg tablet 25 mg PO HS 11/16/20 12/05/21 History hydrochlorothiazide 25 mg tablet 25 mg PO QAM #90 tab 06/19/21 12/05/21 Rx escitalopram oxalate 10 mg tablet 15 mg PO QAM 08/21/21 12/05/21 History (Lexapro) sennosides 8.6 mg capsule (senna) 8.6 mg PO QAM PRN 08/21/21 12/05/21 History lidocaine 5 % topical patch 1 patch TOP DAILY PRN #15 ea 09/03/21 12/05/21 Rx zafirlukast 10 mg tablet 20 mg PO BID #60 tab 11/13/21 12/05/21 Rx baclofen 10 mg tablet 10 mg PO TID PRN 12/05/21 12/05/21 History gabapentin 800 mg tablet 800 mg PO QID 12/05/21 12/05/21 History oxycodone-acetaminophen 7.5 mg-325 1 tab PO QID PRN 12/05/21 12/05/21 History mg tablet capsaicin 0.033 % topical cream 1 applic TOPICAL Q8H PRN 30 Days 12/06/21 Rx (Zostrix) #1 tube Past Med/Surg History Medical History Bilateral inguinal hernia Carpal tunnel syndrome of right wrist Cervical facet joint syndrome Cervical radiculopathy Degenerative disc disease Depression Esophageal reflux no meds History of concussion 2016 History of Lyme disease treated History of migraine Hypertension Lower abdominal pain Scoliosis Slow to wake up after anesthesia Surgical History H/O sinus surgery History of dental surgery Hx of appendectomy Hx of arthroscopic knee surgery left x2 2017 [facility] - LMA #5, no issues per record Operation on nasal septum (08/12/12) Family History Father Family history of diabetes mellitus Coronary heart disease Mother PONV (postoperative nausea and vomiting) Social History Smoking Status: Never smoker Second Hand Exposure: No; Hx Alcohol Use: No Hx Substance Use: No Preferred Language: Tajik Communication Ability: Effective Youtuber Required: No Beliefs That Will Affect Care: None marital status: Current Living Situation: Spouse and Family current occupational status: employed 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 How many Children do You have: 0 Feels Safe at Home: Yes during the past year weight has: remained stable Assistive Devices: Glasses Physical Exam Physical Exam: Constitutional: well-appearing, no acute distress HEENT: NCAT CV: regular rhythm, no murmur appreciated, extremities well-perfused, no LE edema Resp: CTABL, no wheezes/rales/rhonchi appreciated, no increased work of breathing GI: soft, nondistended, mild tenderness of the LUQ and LLQ, moderate tenderness of the RUQ and RLQ, no rebound or guarding : deferred as this had just been performed by ED provider MSK: generalized joint tenderness, no joint swelling or warmth appreciated in shoulders, elbows, wrists, knees, or ankles Skin: warm, dry, no rash appreciated Neuro: alert, oriented, no focal neurologic deficit appreciated, LE sensation grossly intact BL; UE strength 5/5 BL, LLE strength 5/5, RLE strength 2/5 when specifically tested, RLE strength 5/5 during other parts of the physical exam Psych: cooperative, anxious, appropriate rate/volume/quantity of speech Results & Data Results & Data ([facility]) Vital Signs (Past 12 Hours) Vital Signs Temp Pulse Pulse Resp BP BP Pulse Ox 12/05/21 23:00 68 18 153/114 H 97 12/05/21 21:00 36.8 C 65 18 151/89 H 93 12/05/21 19:30 37.1 C 64 64 18 126/83 96 12/05/21 18:22 36.6 C 73 16 126/73 97 Supervising Physician Co-Signing Physician Notes Attending addendum: I have physically seen this patient, have supervised the medical residents activities, and agree with the H&P unless as otherwise noted. Assessment and Plan: Chronic generalized polyarthralgias- Follows with pain management and feels. Medication for pain control as noted, no additional narcotics to be used other than outpatient regimen Consult pain management PT/OT consults Sitter recommended Patient has had multiple MRIs in the past year without significant structural issues Continue gabapentin Remaining orders and notations as noted Resident Activity Tracking Resident Involvement: Resident Care Provided and Theater Technician Coverage Note Care Provided: Adult Hospital Medicine (1) Chronic shoulder pain Laterality: right Qualified Code(s): M25.511 - Pain in right shoulder; G89.29 - Other chronic pain
[2021-12-06] MEDS ORDERED: LIDOCAINE 5% 1 PATCH TD PRN (04:07)
[2021-12-06] MEDS ORDERED: BACLOFEN 10 MG TAB PO PRN (04:07)
[2021-12-06] MEDS ORDERED: SENNA 8.6 MG TAB PO PRN (04:14)
[2021-12-06 04:20] LABS: Procalcitonin 0.09 ng/ml (0-0.5)
[2021-12-06 04:26] LABS: Lyme Ab IgG w/WB Rflx Negative (Negative); Lyme Ab IgM w/WB Rflx Negative (Negative)
[2021-12-06] MEDS: oxyCODONE/APAP 7.5/325MG TAB PO PRN ×2 (04:49→14:32)
[2021-12-06] MEDS: ACETAMINOPHEN 325 MG TAB PO SCH ×2 (05:40→12:03)
--- NOTE | 2021-12-06 06:02 | Hospitalist Progress Note ---
Date of Service December 06, 2021 Assessment & Plan (1) Right testicular pain: Plan: 51yo male with chronic generalized pain, hydrocele, chronic sinusitis, bilateral inguinal hernias, and severe left knee osteoarthritis presents with a variety of complaints, primarily right groin pain. 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 [place] PDMP review shows patient's opioid prescriptions have been increasing in dose and frequency; suspect opioid hyperalgesia is playing a large role in current clinical picture Given worsening joint pain, will obtain tickborne illness titers, ESR, CRP, and peripheral smear Pain control plan: Lidocaine patch to back APAP 325mg PO q6h scheduled Ketorolac 15mg IV q6h scheduled Patient's home gabapentin (800mg qid prn) Patient's home vicodin (7.5/325mg) q6h prn moderate/severe pain No additional opioids Pain management consulted, recommendations appreciated PT/OT ordered Upon discharge, forward records to patient's [place] pain management team, as his pain contract with their practice requires disclosure of visits to other providers Right groin pain Patient with long history of right testicular pain, recently treated a few months ago with a spermatic cord injection done by urology Small right hydrocele seen on prior imaging, although per last urology note, they did not feel that it was large enough to cause any symptoms US scrotum: bilateral testes have normal appearance and vascular flow, no evidence for torsion or orchitis, epididymi unremarkable, small bilateral hydroceles, no varicosities CT a/p without acute findings; does note presence of small fat-containing bilateral inguinal hernias Suspect ongoing pain is multifactorial including opioid hyperalgesia, ?inguinal hernia component, ?spermatic cord involvement Imaging findings do not warrant further inpatient workup, outpatient follow-up recommended Right leg weakness, numbness, burning Patient reporting subjective right leg weakness, though my physical exam findings are inconsistent with staff observations (e.g. patient seen ambulating) MRI lumbar spine (2020) showing multilevel spondylitic change without evidence of moderate/severe spinal stenosis Repeat imaging not warranted based on the above Fall precautions Continue gabapentin Right ankle/elbow/wrist/hand pain secondary to mechanical fall Patient reportedly fell while in the bathroom of his ED room, saying he landed on his right side but did not hit his head XR ankle, elbow, wrist, and hand negative for acute fracture on my read; awaiting radiologist's read Pain control plan as above Bilateral inguinal hernias Identified on previous imaging, redemonstrated on today's CT a/p without no evidence of obstruction or strangulation Patient was seen by [facility] General [facility] a few months ago; recommend following up with their practice to discuss surgical repair Constipation: likely secondary to heavy opioid use; continue home senna HTN: continue home HCTZ MDD: continue home trazodone, escitalopram FEN: regular diet Code status: full code DVT ppx: SCDs Dispo: med/surg (2) Arthralgia of multiple joints: (3) Chronic pain of left knee: (4) Chronic shoulder pain: (5) Hypertension: (6) Lumbar back pain with radiculopathy affecting right lower extremity: Admission and Anticipated Discharge Date Admission Date: December 06, 2021 Review of Systems Review of Systems: All systems reviewed & are unremarkable except as noted in HPI & below Physical Exam Physical Exam: General: Grossly A&O. NAD. Cooperative. HEENT: Atraumatic, normocephalic. EOMI Pulm: CTAB. -wheezes, -rales, -rhonchi. No respiratory distress. Cardiac: RRR, -mrg. Radial pulses intact and symmetrical. Abdominal: Nontender, nondistended, soft. Results & Data Results & [facility] ([facility]) Vital Signs (Past 12 Hours) Vital Signs Temp Pulse Pulse Resp BP BP Pulse Ox 12/06/21 04:32 87 20 140/87 95 12/06/21 03:38 78 18 137/79 94 12/06/21 01:00 37.1 C 69 18 151/87 H 97 12/05/21 23:00 68 18 153/114 H 97 12/05/21 21:00 36.8 C 65 18 151/89 H 93 12/05/21 19:30 37.1 C 64 64 18 126/83 96 12/05/21 18:22 36.6 C 73 16 126/73 97 Resident Activity Tracking Resident Involvement: Resident Care Provided Care Provided: Adult Hospital Medicine (1) Chronic shoulder pain Laterality: right Qualified Code(s): M25.511 - Pain in right shoulder; G89.29 - Other chronic pain
--- NOTE | 2021-12-06 06:54 | XRay Report ---
XR elbow RT min 3V routine CLINICAL HISTORY: Right elbow pain following fall. COMPARISON: Right elbow radiographs April 07, 2016. FINDINGS: Alignment of the right elbow is anatomic. There is no acute fracture. No evidence for a katerine int effusion. No osseous lesions are noted. IMPRESSION: No acute fracture or joint effusion of the right elbow. ACT 112: Negative or not required by law. Electronically signed by: Rikki Vincent M.D. 12/06/2021 6:53 AM
--- NOTE | 2021-12-06 06:55 | XRay Report ---
XR ankle RT min 3V routine CLINICAL HISTORY: pain fall COMPARISON: None FINDINGS: Alignment of the right ankle is anatomic. There is no acute fracture. There is possible so ft tissue swelling overlying the calcaneus. Moderate plantar and posterior calcaneal spurring is pres ent. Talar dome is intact. IMPRESSION: No acute fracture or dislocation within the right ankle. ACT 112: Negative or not required by law. Electronically signed by: Rikki Vincent M.D. 12/06/2021 6:53 AM
--- NOTE | 2021-12-06 06:59 | XRay Report ---
XR wrist RT min 3V routine CLINICAL HISTORY: pain fall COMPARISON: Right thumb radiographs April 07, 2016. FINDINGS: Alignment of the right carpal bones is anatomic. There is no acute fracture. Lucency with mild cortical irregularity of the lateral distal pole of the scaphoid is unchanged since prior radiog raphs. This is not acute. There may be palmar hand soft tissue swelling. IMPRESSION: No acute fracture or dislocation within the right wrist. ACT 112: Negative or not required by law. Electronically signed by: Rikki Vincent M.D. 12/06/2021 6:58 AM
--- NOTE | 2021-12-06 07:18 | XRay Report ---
XR hand RT min 3V routine CLINICAL HISTORY: pain fall COMPARISON: Right first finger radiographs April 07, 2016. FINDINGS: Alignment of the right hand is anatomic. There is no acute fracture. Joint spaces are pres erved. IMPRESSION: No acute fracture or dislocation within the right hand. ACT 112: Negative or not required by law. Electronically signed by: Rikki Vincent M.D. 12/06/2021 7:17 AM
[2021-12-06] MEDS: KETOROLAC TROMETHAMINE 15 MG/ML VIAL IV SCH ×2 (07:38→13:25)
--- NOTE | 2021-12-06 07:38 | Ultrasound Report ---
SCROTAL ULTRASOUND CLINICAL HISTORY: right scrotal pain COMPARISON STUDY: Scrotal ultrasound January 29, 2021. TECHNIQUE: Grayscale and color and duplex Doppler sonography of the scrotum was performed. FINDINGS: Right testis measures 5.1 x 2.4 x 2.8 cm and the left measures 4.9 x 1.9 x 2.7 cm. There is no testicular mass. Color flow within each testis is symmetric. There is no evidence for epididymiti s. There are small bilateral hydroceles. IMPRESSION: 1. Unremarkable appearance of the testes. No evidence for testicular torsion. No testicular mass. 2. No evidence for epididymitis. 3. Small bilateral hydroceles. ACT 112: Negative or not required by law. Electronically signed by: Rikki Vincent M.D. 12/06/2021 7:37 AM
--- NOTE | 2021-12-06 07:50 | CT Scan Report ---
CT OF THE ABDOMEN AND PELVIS WITH CONTRAST CLINICAL HISTORY: lower abdominal pain, constipation, hernias COMPARISON STUDY: CT of the abdomen and pelvis January 29, 2021. TECHNIQUE: Following IV administration of 94 mL of Optiray, axial images of the abdomen and pelvis we re obtained from the lung bases to the proximal femurs. Images were reviewed in the axial, sagittal, and coronal planes. IV contrast was administered without complication. Automated exposure control wa s utilized for the study. A dose lowering technique was utilized adhering to the principles of ALARA . CT DOSE: 1475.76 mGy.cm FINDINGS: Linear and groundglass opacities within the lower lungs favor atelectasis. Hepatic steatosi s is noted. There is no biliary or pancreatic ductal dilatation. No hepatic lesions are noted. Gallbl adder is mildly distended. There is no adjacent infiltration. Spleen, adrenal glands, kidneys and mckeon creas are unremarkable. There is no hydronephrosis. No pancreatic ductal dilatation is present. Sigmo id diverticulosis is noted without evidence for acute diverticulitis. The appendix is not visualized. Bladder is mildly distended. Mild mesenteric stranding is unchanged. Major vasculature is patent. Sm all fat-containing bilateral inguinal hernias are again noted. No acute fracture or suspicious lesion is identified within the visualized skeletal structures. IMPRESSION: 1. No acute process within the abdomen or pelvis. 2. Sigmoid diverticulosis without evidence for acute diverticulitis. 3. No bowel obstruction. No bowel wall thickening. 4. Small fat-containing bilateral inguinal hernias, unchanged ACT 112: Negative or not required by law. Electronically signed by: Rikki Vincent M.D. 12/06/2021 7:49 AM
[2021-12-06] MEDS: GABAPENTIN 800 MG TAB PO SCH ×3 (08:42→17:38)
[2021-12-06] MEDS ORDERED: TRIAMCINOLONE ACET 40 MG/ML VIAL IM STA (08:55)
[2021-12-06] MEDS ORDERED: BUPIVACAINE 0.25% 30 ML VIAL INFIL STA (08:55)
[2021-12-06] MEDS ORDERED: hydroCHLOROthiazide 25 MG TAB PO SCH (09:00)
[2021-12-06] MEDS ORDERED: ESCITALOPRAM OXALATE 10 MG TAB PO SCH (09:00)
[2021-12-06] MEDS ORDERED: TRIAMCINOLONE ACET 40 MG/ML VIAL ONE (09:03)
[2021-12-06] MEDS ORDERED: BUPIVACAINE 0.25% 30 ML VIAL ONE (09:04)
[2021-12-06] MEDS ORDERED: bisacodyL 10 MG SUPP PR STA (10:28)
[2021-12-06] MEDS ORDERED: CAPSAICIN CR 0.075% 60 GM TUBE EXT PRN (10:28)
--- NOTE | 2021-12-06 12:24 | Pain Management Consultation ---
Date of Consultation December 06, 2021 Assessment & Plan (1) Right testicular pain: (2) Opioid dependence: Substance use status: uncomplicated Qualified Code(s): F11.20 - Opioid dependence, uncomplicated (3) Lumbar back pain with radiculopathy affecting right lower extremity: 1. Predominant pain generator is right sided testicular/scrotal region pain with some extension onto the thigh in a nondermatomal pattern. Potential etiologies discussed. Recommend patient undergo a genitofemoral nerve block at today's visit and he was agreeable. Refer to procedure note below. 2. Should the patient experience significant leaf of typical pain for duration of local anesthetic only he would potentially be candidate for repeat diagnostic block followed by RFA. Should he experience no relief would recommend he return to urology for repeat spermatic cord block and further discussion regarding definitive treatment options. 3. Would not recommend any escalation of his opiate therapy. He may have an element of opioid-induced hyperalgesia and is experiencing opioid-induced constipation. He should follow-up with his outpatient prescribing physician for further discussion. 4. The patient has no findings on lumbar MRI completed on 08/08/2020 consistent with his right lower extremity radicular pain complaint. Would not recommend interventional treatment directed at his right lower extremity pain complaint which is inconsistent with MRI findings. No apparent reason to update lumbar imaging given no change in this complaint and no physical exam findings to support 5. No current change in recommendations regarding medical management History of Present Illness Reason for Consultation: Right-sided scrotal/testicular pain and right leg pain Requesting Physician: Bryce Cedeño MD Attending Physician: Walt Minaya DO History of Present Illness Mr. Beck is a 51-year-old white male who was admitted due to right-sided testicular/scrotal region pain complaints. The patient reports the symptoms have been ongoing chronically and he is followed by urology in the outpatient setting. He most recently underwent a right-sided spermatic cord block performed in August which provided him with 3 months of significant relief of his typical pain. His pain is returned. Is also experiencing pain traveling into the right groin and anterior/medial thigh region. Describes this pain as sharp, shooting and burning in characteristic. He denies known injury recently cont ribute increased pain complaints. Patient does take chronic opiate therapy as prescribed by [facility] in [place]. He has some chronic right lower extremity pain, paresthesia and weakness per his report. The symptoms are nondermatomal and inconsistent in location and characteristic. Patient also reports a known history of inguinal hernia and hydrocele. Patient further has complaints of some diffuse polyarthralgias of unknown etiology. There has been recent escalation in his opiate dependency from hydrocodone 5/325 to hydrocodone 7.5/325 per review of PDMP. The patient reports ongoing chronic difficulties with constipation. He reports occasionally with straining with bowel movement he developed some increased pain in the perineal and scrotal/testicular region. He denies pain with urination. Patient has no further constitutional complaints. Plan of care discussed with Dr. Garcia. Pain Assessment Full Body Front + Back: 1. Right scrotal/testicular pain and right groin/thigh pain Pain scale - at its best (0-10): 6 Pain scale - at its worst (0-10): 10 Allergies Allergy/AdvReac Type Severity Reaction Status Date / Time apple Allergy Severe Swelling Verified 12/05/21 19:40 of Lip/Tongue/Throat ibuprofen [From Motrin] Allergy Severe Swelling Verified 12/05/21 19:40 of Lip/Tongue/Throat peach Allergy Severe Swelling Verified 12/05/21 19:40 of Lip/Tongue/Throat pear Allergy Severe Swelling Verified 12/05/21 19:40 of Lip/Tongue/Throat tree nut Allergy Severe Swelling Verified 12/05/21 19:40 of Lip/Tongue/Throat diclofenac Allergy Intermediate Itchiness Verified 12/05/21 19:40 and rash Home Medications Medication Instructions Recorded Confirmed Type trazodone 50 mg tablet 25 mg PO HS 11/16/20 12/05/21 History hydrochlorothiazide 25 mg tablet 25 mg PO QAM #90 tab 06/19/21 12/05/21 Rx escitalopram oxalate 10 mg tablet 15 mg PO QAM 08/21/21 12/05/21 History (Lexapro) sennosides 8.6 mg capsule (senna) 8.6 mg PO QAM PRN 08/21/21 12/05/21 History lidocaine 5 % topical patch 1 patch TOP DAILY PRN #15 ea 09/03/21 12/05/21 Rx zafirlukast 10 mg tablet 20 mg PO BID #60 tab 11/13/21 12/05/21 Rx baclofen 10 mg tablet 10 mg PO TID PRN 12/05/21 12/05/21 History gabapentin 800 mg tablet 800 mg PO QID 12/05/21 12/05/21 History oxycodone-acetaminophen 7.5 mg-325 1 tab PO QID PRN 12/05/21 12/05/21 History mg tablet Pain History Pain Intensity Pain scale - at its best (0-10): 6 Pain scale - at its worst (0-10): 10 Patient History Medical History Bilateral inguinal hernia Carpal tunnel syndrome of right wrist Cervical facet joint syndrome Cervical radiculopathy Degenerative disc disease Depression Esophageal reflux no meds History of concussion 2016 History of Lyme disease treated History of migraine Hypertension Lower abdominal pain Scoliosis Slow to wake up after anesthesia Surgical History H/O sinus surgery History of dental surgery Hx of appendectomy Hx of arthroscopic knee surgery left x2 2016 [facility] - LMA #5, no issues per record Operation on nasal septum (08/12/12) Family History Father Family history of diabetes mellitus Coronary heart disease Mother PONV (postoperative nausea and vomiting) Social History Smoking Status: Never smoker Second Hand Exposure: No; Hx Alcohol Use: No Hx Substance Use: No Preferred Language: Persian Communication Ability: Effective 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 Speech and thought process appropriate. Mood and affect appropriate. Cognition intact. Head: Normocephalic and atraumatic. ENT: No evidence of nasal or oral mucosal lesions. Mucous membranes are moist. Eyes: Pupils equal round reactive to light. Neck: Supple without adenopathy and full range of motion. Chest: Moderately tender to palpation of the costosternal junction. Musculoskeletal: Some generalized myofascial tenderness to palpation with slightly hyperalgesic response. Abdomen: Soft and nondistended. No organomegaly. Bowel sounds active. Patient is tender to direct palpation over the right genitofemoral nerve reproducing some radiating pain into the scrotal region. No rebound or guarding. Genital: Some generalized tenderness to palpation over the right scrotal/testicular region. No palpable abnormality. Back/spine: Minimally tender over the lumbosacral region which is nonfocal. No focal facet or SI joint tenderness. Lower extremities: SLR negative bilaterally. Strength testing with questionable effort-unreliable. Sensation intact without deficit. Neurologic: Cranial nerves grossly intact. Ambulatory function not witnessed. Results (Pain Clinic) Diagnostic Review CT Findings: [place], [place] [phone] CT Scan Report Patient:SHANON BECK Admit Date:12/06/21 MR#:[id number] Address1:[address] [place] [address] Acct ID:[id number] Address2: Date:[address] [facility] Zip:[place] [address] Age:51 Location:[facility] Sex:M Room/Bed:[place] [address] Att Phy:Hamzah Burden MD Diagnosis:TESTICULAR PAIN Bianca Phy:Bridget Steward MD Service Date:12/05/21 Fam Phy: Interpreting Phy:Rikki Vincent [facility] Phy:Bryce Cedeño MD Ordering Phy:Roshan Boothe M.D. cc: ~ CT OF THE ABDOMEN AND PELVIS WITH CONTRAST CLINICAL HISTORY: lower abdominal pain, constipation, hernias COMPARISON STUDY: CT of the abdomen and pelvis January 29, 2021. TECHNIQUE: Following IV administration of 94 mL of Optiray, axial images of the abdomen and pelvis were obtained from the lung bases to the proximal femurs. Images were reviewed in the axial, sagittal, and coronal planes. IV contrast was administered without complication. Automated exposure control was utilized for the study. A dose lowering technique was utilized adhering to the principles of ALARA. CT DOSE: 1475.76 mGy.cm FINDINGS: Linear and groundglass opacities within the lower lungs favor atelectasis. Hepatic steatosis is noted. There is no biliary or pancreatic ductal dilatation. No hepatic lesions are noted. Gallbladder is mildly distended. There is no adjacent infiltration. Spleen, adrenal glands, kidneys and pancreas are unremarkable. There is no hydronephrosis. No pancreatic ductal dilatation is present. Sigmoid diverticulosis is noted without evidence for acute diverticulitis. The appendix is not visualized. Bladder is mildly distended. Mild mesenteric stranding is unchanged. Major vasculature is patent. Small fat-containing bilateral inguinal hernias are again noted. No acute fracture or suspicious lesion is identified within the visualized skeletal structures. IMPRESSION: 1. No acute process within the abdomen or pelvis. 2. Sigmoid diverticulosis without evidence for acute diverticulitis. 3. No bowel obstruction. No bowel wall thickening. 4. Small fat-containing bilateral inguinal hernias, unchanged ACT 112: Negative or not required by law. Electronically signed by: Rikki Vincent M.D. 12/06/2021 7:49 AM Dictated:12/06/21742 Transcribed: 12/06/21742 Other Findings: [place], [place] [phone] Ultrasound Report Patient:SHANON BECK Admit Date:12/06/21 MR#:[id number] Address1:[address] [place] [address] Acct ID:[id number] Address2: Date:[address] [facility] Zip:[place] [address] Age:51 Location:[facility] Sex: Room/Bed:[place] [address] Att Phy:Hamzah Burden MD Diagnosis:TESTICULAR PAIN Bianca Phy:Bridget Steward MD Service Date:12/05/21 Fam Phy: Interpreting Phy:Rikki Vincent MDAdmit Phy:Bryce Cedeño MD Ordering Phy:Roshan Boothe M.D. cc: ~ SCROTAL ULTRASOUND CLINICAL HISTORY: right scrotal pain COMPARISON STUDY: Scrotal ultrasound January 29, 2021. TECHNIQUE: Grayscale and color and duplex Doppler sonography of the scrotum was performed. FINDINGS: Right testis measures 5.1 x 2.4 x 2.8 cm and the left measures 4.9 x 1.9 x 2.7 cm. There is no testicular mass. Color flow within each testis is symmetric. There is no evidence for epididymitis. There are small bilateral hydroceles. IMPRESSION: 1. Unremarkable appearance of the testes. No evidence for testicular torsion. No testicular mass. 2. No evidence for epididymitis. 3. Small bilateral hydroceles. ACT 112: Negative or not required by law. Electronically signed by: Rikki Vincent M.D. 12/06/2021 7:37 AM Dictated:12/06/21734 Transcribed: 12/06/21734 Previous Records Review Previous Records: personally reviewed by me
--- NOTE | 2021-12-06 12:55 | Discharge Summary ---
Date of Service December 06, 2021 Admission HPI Per Admitting Provider 51yo male with chronic generalized pain, hydrocele, chronic sinusitis, bilateral inguinal hernias, and severe left knee osteoarthritis presents with the primary complaint of right groin pain. Patient notes a long history of right groin pain that radiates down his right leg and up to his abdomen, noting his "right testicle feels like it's going to explode". 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 Patient also complains of bilateral lower back pain, worse on the right. Around 5:30pm this evening, patient's right leg "gave out" and he fell without injury, but then he started feeling nauseated before vomiting. This resolved after a few minutes. Patient does endorse mild SOB which he attributes to anxiety; this is normal for him when he feels anxious. Patient denies fever, chills, CP, diarrhea, dysuria, lightheadedness, dizziness, or other symptoms. D enies bowel/bladder incontinence or saddle anesthesia. Patient was evaluated by urology in August for his groin pain; they felt patient's hydrocele was unlikely causing any pain due to its small size. Patient underwent a spermatic cord injection to treat testicular pain, which patient reports "completely took away all of my pain for three months but then last week it all came back". Patient requests having this procedure done again here while in the hospital, as well as a variety of other studies and procedures including an MRI spine, EMG nerve studies, a bilateral inguinal hernia repair, and steroid injections for his neck, left shoulder, and lumbar spine. While in the ED, patient ambulated to the bathroom by himself, and reports that he fell once he was in the bathroom, landing on his right side. Patient says this is exacerbating his preexisting pain. After this occurred, XR right elbow + wrist + hand + ankle were obtained. Admission Exam Per Admitting Provider Constitutional: well-appearing, no acute distress HEENT: NCAT CV: regular rhythm, no murmur appreciated, extremities well-perfused, no LE edema Resp: CTABL, no wheezes/rales/rhonchi appreciated, no increased work of breathing GI: soft, nondistended, mild tenderness of the LUQ and LLQ, moderate tenderness of the RUQ and RLQ, no rebound or guarding : deferred as this had just been performed by ED provider MSK: generalized joint tenderness, no joint swelling or warmth appreciated in shoulders, elbows, wrists, knees, or ankles Skin: warm, dry, no rash appreciated Neuro: alert, oriented, no focal neurologic deficit appreciated, LE sensation grossly intact BL; UE strength 5/5 BL, LLE strength 5/5, RLE strength 2/5 when specifically tested, RLE strength 5/5 during other parts of the physical exam Psych: cooperative, anxious, appropriate rate/volume/quantity of speech Principal Diagnosis piriformis syndrome, right testicular pain Discharge Exam General: A&Ox3. NAD. Cooperative. Tearful affect at room entry, improved after. HEENT: Atraumatic, normocephalic. EOMI Pulm: CTAB. -wheezes, -rales, -rhonchi. Symmetrical chest rise. No respiratory distress. Cardiac: RRR, -mrg. No LE edema. Abdominal: Nontender, nondistended, soft. Msk: pos R SLR. ttp at R piriformis muscle. Discharge Data Allergies Allergy/AdvReac Type Severity Reaction Status Date / Time apple Allergy Severe Swelling Verified 12/05/21 19:40 of Lip/Tongue/Throat ibuprofen [From Motrin] Allergy Severe Swelling Verified 12/05/21 19:40 of Lip/Tongue/Throat peach Allergy Severe Swelling Verified 12/05/21 19:40 of Lip/Tongue/Throat pear Allergy Severe Swelling Verified 12/05/21 19:40 of Lip/Tongue/Throat tree nut Allergy Severe Swelling Verified 12/05/21 19:40 of Lip/Tongue/Throat diclofenac Allergy Intermediate Itchiness Verified 12/05/21 19:40 and rash Consultations 12/06/21 01:03 ED Decision to Admit Stat 12/06/21 01:57 Consult Pain Management Stat Ordered Studies Cardiac Enzymes 12/05/21 Range/Units 20:00 AST 20 (13-39) U/L CBC 12/05/21 Range/Units 20:00 WBC 5.83 (4.8-10.8) K/uL RBC 4.32 L (4.7-6.1) M/uL Hgb 13.4 L (14.0-18.0) g/dL Hct 37.6 L (42-52) % Plt Count 206 (130-400) K/uL Neut # (Auto) 3.03 (1.4-6.5) K/uL Lymph # (Auto) 2.09 (1.2-3.4) K/uL [place] # (Auto) 0.51 (0.11-0.59) K/uL Eos # (Auto) 0.16 (0-0.5) K/uL Baso # (Auto) 0.03 (0-0.2) K/uL Comprehensive Metabolic Panel 12/05/21 Range/Units 20:00 Sodium 138 (136-145) mmol/L Potassium 3.4 L (3.5-5.1) mmol/L Chloride 103 (98-107) mmol/L Carbon Dioxide 28 (21-32) mmol/L BUN 23 (6-23) mg/dl Creatinine 1.10 (0.6-1.4) mg/dl Glucose 87 (70-99(Fasting)) mg/dl Calcium 9.4 (8.5-10.1) mg/dl AST 20 (13-39) U/L ALT 20 (7-52) U/L Alkaline Phosphatase 54 (34-104) U/L Total Protein 7.3 (6.0-8.3) gm/dl Albumin 4.3 (3.4-5.0) gm/dl Intake and Output 12/05/21 12/06/21 12/06/21 22:59 06:59 14:59 Intake Total 2099 Balance 2099 Intake: IV 2099 Acetaminophen 1,000 mg In 100 100 / 100 ml @ 400 mls/hr IV NOW STA Rx#: [id number] Sodium Chloride 0.9% 1000ML 2, 2000 / 2000 000 ml @ 999 mls/hr IV .Q2H1M ONE Rx#:[id number] Other: Weight 119.2 kg Weight Measurement Method Built in [facility] Abdomen/Pelvis CT 12/05/21 19:09 CT OF THE ABDOMEN AND PELVIS WITH CONTRAST CLINICAL HISTORY: lower abdominal pain, constipation, hernias COMPARISON STUDY: CT of the abdomen and pelvis January 29, 2021. TECHNIQUE: Following IV administration of 94 mL of Optiray, axial images of the abdomen and pelvis were obtained from the lung bases to the proximal femurs. Images were reviewed in the axial, sagittal, and coronal planes. IV contrast was administered without complication. Automated exposure control was utilized for the study. A dose lowering technique was utilized adhering to the principles of ALARA. CT DOSE: 1475.76 mGy.cm FINDINGS: Linear and groundglass opacities within the lower lungs favor atelectasis. Hepatic steatosis is noted. There is no biliary or pancreatic ductal dilatation. No hepatic lesions are noted. Gallbladder is mildly distended. There is no adjacent infiltration. Spleen, adrenal glands, kidneys and pancreas are unremarkable. There is no hydronephrosis. No pancreatic ductal dilatation is present. Sigmoid diverticulosis is noted without evidence for acute diverticulitis. The appendix is not visualized. Bladder is mildly distended. Mild mesenteric stranding is unchanged. Major vasculature is patent. Small fat-containing bilateral inguinal hernias are again noted. No acute fracture or suspicious lesion is identified within the visualized skeletal structures. IMPRESSION: 1. No acute process within the abdomen or pelvis. 2. Sigmoid diverticulosis without evidence for acute diverticulitis. 3. No bowel obstruction. No bowel wall thickening. 4. Small fat-containing bilateral inguinal hernias, unchanged ACT 112: Negative or not required by law. Electronically signed by: Rikki Vincent M.D. 12/06/2021 7:49 AM Scrotum Ultrasound 12/05/21 19:09 SCROTAL ULTRASOUND CLINICAL HISTORY: right scrotal pain COMPARISON STUDY: Scrotal ultrasound January 29, 2021. TECHNIQUE: Grayscale and color and duplex Doppler sonography of the scrotum was performed. FINDINGS: Right testis measures 5.1 x 2.4 x 2.8 cm and the left measures 4.9 x 1.9 x 2.7 cm. There is no testicular mass. Color flow within each testis is symmetric. There is no evidence for epididymitis. There are small bilateral hydroceles. IMPRESSION: 1. Unremarkable appearance of the testes. No evidence for testicular torsion. No testicular mass. 2. No evidence for epididymitis. 3. Small bilateral hydroceles. ACT 112: Negative or not required by law. Electronically signed by: Rikki Vincent M.D. 12/06/2021 7:37 AM Ankle X-Ray 12/06/21 00:29 XR ankle RT min 3V routine CLINICAL HISTORY: pain fall COMPARISON: None FINDINGS: Alignment of the right ankle is anatomic. There is no acute fracture. There is possible soft tissue swelling overlying the calcaneus. Moderate plantar and posterior calcaneal spurring is present. Talar dome is intact. IMPRESSION: No acute fracture or dislocation within the right ankle. ACT 112: Negative or not required by law. Electronically signed by: Rikki Vincent M.D. 12/06/2021 6:53 AM Elbow X-Ray 12/06/21 00:29 XR elbow RT min 3V routine CLINICAL HISTORY: Right elbow pain following fall. COMPARISON: Right elbow radiographs April 07, 2016. FINDINGS: Alignment of the right elbow is anatomic. There is no acute fracture. No evidence for a joint effusion. No osseous lesions are noted. IMPRESSION: No acute fracture or joint effusion of the right elbow. ACT 112: Negative or not required by law. Electronically signed by: Rikki Vincent M.D. 12/06/2021 6:53 AM Hand X-Ray 12/06/21 00:29 XR hand RT min 3V routine CLINICAL HISTORY: pain fall COMPARISON: Right first finger radiographs April 07, 2016. FINDINGS: Alignment of the right hand is anatomic. There is no acute fracture. Joint spaces are preserved. IMPRESSION: No acute fracture or dislocation within the right hand. ACT 112: Negative or not required by law. Electronically signed by: Rikki Vincent M.D. 12/06/2021 7:17 AM Wrist X-Ray 12/06/21 00:29 XR wrist RT min 3V routine CLINICAL HISTORY: pain fall COMPARISON: Right thumb radiographs April 07, 2016. FINDINGS: Alignment of the right carpal bones is anatomic. There is no acute fracture. Lucency with mild cortical irregularity of the lateral distal pole of the scaphoid is unchanged since prior radiographs. This is not acute. There may be palmar hand soft tissue swelling. IMPRESSION: No acute fracture or dislocation within the right wrist. ACT 112: Negative or not required by law. Electronically signed by: Rikki Vincent M.D. 12/06/2021 6:58 AM Hospital Course (1) Right testicular pain: 51yo male with chronic generalized pain on narcotic medications, hydrocele, chronic sinusitis, bilateral inguinal hernias, and severe left knee osteoarthritis who presents with a variety of complaints, primarily right radiculopathy pain and right testicular pain. Right lumbar radiculopathy type pain; most consistent w/ piriformis syndrome Responded well to OMM. Continue outpatient OMM f/u. quarry manager will help arrange. At admission, reported subjective right leg weakness, though there was some inconsistency with staff observations (e.g. patient seen ambulating) MRI lumbar spine (2020) showing multilevel spondylitic change without evidence of moderate/severe spinal stenosis Chronic narcotic pain medication use; multifactorial Patient follows with a pain management provider in [place] PDMP review shows patient's opioid prescriptions have been increasing in dose and frequency (increased to 45 MME this month); suspect opioid hyperalgesia is playing a role in current clinical picture Given worsening joint pain, will obtain tickborne illness titers, ESR, CRP, and peripheral smear. Lyme ab and peripheral smear neg. Considered fibromyalgia. Patient received oxycodone 5mg doses in ED. Patient outpatient regimen is oxycodone-acetaminophen 7.5/325 q6h prnt; states he needs all the doses. While inpatient, did not escalate narcotic pain meds beyond home regimen. Trialed topical capsaicin. Of note, patient does endorse slight fatigue/generalized weakness on his current multicomponent pain regimen, which includes baclofen and 3200mg gabapentin. Pain management consulted, recommendations appreciated. No change to narcotic regimen. R genitofemoral nerve block was provided today. Other potential options would include repeat diagnostic block followed by RFA. Could also consider spermatic cord block per urology which patient has had previously. Upon discharge, forward records to patient's [place] pain management team, as his pain contract with their practice requires disclosure of visits to other providers Right groin pain Patient with long history of right testicular pain, recently treated a few months ago with a spermatic cord injection done by urology Small right hydrocele seen on prior imaging, although per last urology note, they did not feel that it was large enough to cause any symptoms US scrotum: bilateral testes have normal appearance and vascular flow, no evidence for torsion or orchitis, epididymi unremarkable, small bilateral hydroceles, no varicosities CT a/p without acute findings; does note presence of small fat-containing bilateral inguinal hernias Imaging findings do not warrant further inpatient workup, outpatient follow-up recommended. Can consider spermatic cord block Chronic polyarthralgia, considered fibromyalgia Tickborne labs pending. Lyme Abs and peripheral smear neg. CRP wnl. Right ankle/elbow/wrist/hand pain secondary to mechanical fall Patient reportedly fell while in the bathroom of his ED room, saying he landed on his right side but did not hit his head XR ankle, elbow, wrist, and hand negative for acute fracture Bilateral inguinal hernias Identified on previous imaging, redemonstrated on CT a/p without no evidence of obstruction or strangulation Patient was seen by [facility] a few months ago; recommend following up with their practice to discuss surgical repair Constipation: likely secondary to chronic opioid use; continue home senna. Consider miralax, titrate until bowel movement. HTN: continue home HCTZ MDD: continue home trazodone, escitalopram. Revisit trazodone if drowsiness concerns. Patient was full code this admission. (2) Arthralgia of multiple joints: (3) Chronic pain of left knee: (4) Chronic shoulder pain: (5) Hypertension: (6) Lumbar back pain with radiculopathy affecting right lower extremity: (7) Opioid dependence: Total Time Total Time Spent Total Time Spent (In Minutes): >30 Discharge Plan Discharge Items Patient Disposition: Home - Self-Care Reason For Visit: TESTICULAR PAIN Discharge Diagnosis: right lumbrosacral radicular pain Activity: Per Instructions section Non-emergency contact: Primary Care Provider Call non-emergency contact if: you have any medication questions Follow-up/Referrals: Bridget Steward MD [Primary Care Provider] - (hospital discharge follow up within 1 week of discharge) Diet: Regular Addtl Attending Provider Instructions: testicular pain -Fortunately we did not see anything that looks like an infection, hernia, worsening of hydrocele, etc. -The pain is highly likely nerve irritationalthough as we discussed, it seems to be a bit of an undefined cause. -The pain management team did a nerve block of the genitofemoral nervethis is a little further "upstream" from the injection that urology did a few months ago. The hope will be that it dulls out pain in the whole region. As we discussed, these types of injections often will have a small degree of immediate relief, followed by a few days of worsening, followed by more lasting relief when they work well. To "hedge our bets" given that we do not want you having to wait a long time for further care if the injection does not help enough, we have set things in motion for a referral back to Dr. Naylor so that if need be, he can repeat the injection like he did in August right leg pain/pain and numbness radiating down leg -As we discussed, your previous MRI did not show anything that would really account for nerve impingement/"radicular pain". While it is possible that something new has evolved from the previous MRI, it is far more likely that this is a peripheral nerve compression from your piriformis muscle pressing on your sciatic nerveas outlined below ----The piriformis is a muscle that runs from her hip over to our sacrum. It is a fairly small muscle in size (about the caliber of my thumb), it runs horizon ariella and gravity runs vertical, and it is asked to cover a big range of motion since it is the only muscle that really attaches our spine to our hip. When you remembered the injury at the [employer] game, what you are describing really sounds like the piriformis got injured as a central culprit and what has created this pain pattern on your leg. -If you "Google image" piriformis muscle you will see where it runsand you will also see in several images that the sciatic nerve runs right underneath it. What this means is that when the piriformis muscle is too tight, it will compress on the sciatic nerve and create nerve pain going down the leg. As we showed when you look at where the sciatic nerve "fuels sensation" (if you google sensory distribution of sciatic nerve you will see this as well), it is very easy for sciatic nerve compression to mimic a pinched nerve in the lumbar spine. -You were very tight and tender in the right area of your buttock to account for a tight piriformis muscle, making this the most likely cause of the buttock pain and pain radiating down your leg -Generally speaking, what I have found through the years, is that far more than medical treatment for tight muscles, hands-on "manipulative medicine" (osteopathic manipulative treatment/OMT) tends to do better at alleviating this kind of a problem than just about any other treatment that I have trialed. Usually find very little to no benefit from muscle relaxants, and even a lot of other similar techniques (such as bony adjustments or physical therapy) usually do not get the same benefit. -We are going to try to get you referred to one of the DO physicians in the community that does OMTwe are blessed to have severalin case things "slip through the cracks" the osteopathic physicians that would probably do well working on you are Dr. Leno Foster DO with [facility] physician group, or with the [facility] family medicine residencyany of Dr. Kerline Montesinos DO, Dr. Dave Rea DO, Dr. Derek Treviño DO, Dr. Dev Corbin DO, or Dr. Rosalinda Michel DO. -As we discussed, loosening this muscle (and the surrounding muscles that almost certainly are also tight from the strain pattern lasting for so many years) will take quite some timeremember the "muscle memory" analogy we usedwhere it would take a while of going to the ice rink over and over again to learn how to hit a good slap shot, but once the muscle memory was ingrained it would last far better. Loosening what has been a chronically tight muscle (or region of muscles) is generally a similar processit would not surprise me at all if you are in the office quite a bit for December and January, even may be February. And then as they are starting to get more muscle memory of the muscle being more appropriately loose, they will start to be able to back off more. As we discussed, set your sights on Halloween is a reasonable time to decide if there has been a lot of improvement or notit will take quite a while. -At home, stretching that is directed to loosen the piriformis (fortunately there are a lot of yoga techniques that do thisand therefore checking on Google or YouTube for "piriformis stretch" should yield quite a few results, as well as putting Voltaren gel over the area 4 times a day, should also help calm things down faster. -Additionally, while it will also be a major piece of helping with the probable fibromyalgia/chronic pain, light cardiovascular exercise to get blood flowing tends to be one of the most potent muscle relaxants we have in this type of situation (something along the lines of a brisk walkleave your photography equipment behindfor about 20 minutes should suffice) probable fibromyalgia -Your suspicion that you have fibromyalgia seems highly likely to be correct. Having only seen you today, and obviously we were talking about quite a bit else above, I would hesitate to say beyond a shadow of a doubt that absolutely is the diagnosis, but I think where in the right "neighborhood". Dr. Tijerina seeing you further can help confirmbut like we discussed, it is a clinical diagnosis, not necessarily something that shows up on a test or x-ray/MRI/etc. -Unfortunately we do not know a ton about what causes fibromyalgia, despite the fact that it is very common. The working theories are that the muscles generate an inappropriately "loud" pain signal, that the nerves get used to carrying pain too much so that they carry a pain signal even on what should be a "good day", or that the part of the brain that since his pain gets the "volume turned up"the truth is probably that most people have some semblance of all 3 going on, while for certain people one of the 3 might be more dominant than the others -In terms of treatment, as we discussed, I have never really seen any medications be hugely helpful. Definitely look at fibromyalgia as a "mind-body diagnosis"where the most effective treatment is really going to be working on the "whole you". -When I was in an office practice, I found OMT (as outlined above for your piriformis) to be surprisingly helpful for my fibromyalgia patients. As we discussed, not wanting to simply shrug my shoulders until people "sorry about your bad luck", we gave trial to treating where they hurt with OMT techniques as though the muscles were spasticand while it took time as well, I would venture that probably three quarters of my patients (or maybe more) felt enough benefit that it was worth their time. The same DO that is seeing you to work on your piriformis can start to give trial to this as well. -Additionally, light cardiovascular exercise tends to (in the long run) be quite helpfulit is probably 1 part the blood flow as outlined above under the piriformis, and another part just being gentle range of motion to keep muscles and ligaments moving. Again this is something like taking a brisk walk for 20 or 30 minutes (and again leaving the photo equipment behind so that you are not hauling a heavy load and straining) -Desensitization of tender areas can be helpfulthis can be as simple as using lotion (or Voltaren gel) and specifically rubbing it into areas that discretely hurt 3-4 times a day. How much is from the lotion or gel sinking in, versus just the constant rubbing desensitizing/normalizing the nervesnobody really knows, but a lot of people do get benefit from this -In a very true "mind-body" way a lot of people with fibromyalgia get significant benefit from some form of psychology/counseling. In a perfect world we are going to try to get you set up with somebody who does pain psychology (it is a very specific thingremember the example we talked about with my daughter seeing specifically not even a pain psychologist, but a gastrointestinal pain psychologist)however, if we are not able to specifically get you set up with a pain psychologist, any psychologist doing some form of cognitive behavioral therapy/talk therapyeven if it is geared more towards the depression side of the chronic pain then the pain side of the chronic painshould be quite helpful (we will try to be setting things in motion with this referral process as well, but in the area specifically, [facility] (off of [facility])has quite a few counselors and psychologistand uniquely has a magnetic stimulation device that can sometimes be helpful with chronic pain/depression, or [facility] (on [address] [facility] has counselors as well as a neuro biofeedback program that can also be rather helpful for people. As we "set up the team" there will be a lot of moving partsgiven that you will likely be seeing a DO for OMT, a psychologist, possibly urology or pain management for further injections, as well as home stretches/topical gels and creams/a light but regular exercise program. With all of this, look at Dr. Tijerina as your "quarterback" where she can help guide you, troubleshoot, and offer further suggestions of certain parts of the plan are working better than others. Be patient and do not give up hope, as we discussed, a lot of the situations sometimes come on seemingly out of nowhere, last a frustratingly long period of time, but then often (for no good reason) will either fade back in intensity or even go into remission. To that end, unfortunately while we measure the time that it is frustratingly bad in years, I do not believe you are doomed for this to be your forever normal. Pending Studies at Discharge: No Stand-Alone Forms: My [facility] [employer], Smoking Cessation Medications and DC Order Prescriptions: New Zostrix 0.033 % Cream 1 applic topical Q8H PRN (Reason: pain) 30 Days Qty: 1 RF: 2 Continued trazodone 50 mg tablet 25 mg PO HS RF: 0 hydrochlorothiazide 25 mg tablet 25 mg PO QAM Qty: 90 RF: 0 zafirlukast 10 mg tablet 20 mg PO BID Qty: 60 RF: 2 lidocaine 5 % adhesive patch,medicated 1 patch TOP DAILY PRN (Reason: pain) Qty: 15 RF: 0 gabapentin 800 mg tablet 800 mg PO QID RF: 0 baclofen 10 mg tablet 10 mg PO TID PRN (Reason: MUSCLE SPASMS) RF: 0 oxycodone-acetaminophen 7.5-325 mg tablet 1 tab PO QID PRN (Reason: Pain) RF: 0 escitalopram oxalate [Lexapro] 10 mg Tablet 15 mg PO QAM RF: 0 senna 8.6 mg Capsule 8.6 mg PO QAM PRN (Reason: Constipation) RF: 0 Discharge Orders: Discharge Order (Routine); Ordered 12/06/21 Ordered By: Walt Minaya Admission Data Admit Date/Time: 12/06/21 01:57 Attending Provider: Walt Minaya Admit Provider: Bryce Cedeño Primary Care Provider: Bridget Steward Other Providers: Scar Garcia ; Hamzah Burden Other Interventions: Discharge Summary Assessment (RN) Last Done: 12/06/21 18:25 Supervising Physician Co-Signing Physician Notes I personally examined the patient and verified all palomo points of history and exam, discussed case, and agree with decision making with Dr Hernandez. Pain ongoing. After extensive explanations and outlining a plan, he offers appreciationnotes that he does not really feel like the medications are helping, expresses a good understanding that the plan is largely an outpatient plan as there is not a whole lot of benefit to keeping him in the hospital further, and is more than willing to go home, is willing to follow through with multiple stepsreally just wants improvement in his quality of life. Vitals noted, in general he is awake and alert pleasant no distress. HEENT normocephalic atraumatic mucous membranes moist. Breathing unlabored no accessory muscle use good effort. Skin shows no rashes no pallor or icterus. Neuro without focal deficits. Musculoskeletal/osteopathic shows right-sided piriformis range of buttocks musculature to be high tone tender decreased range of motiondid a trial of LASdid show some favorable tissue texture response. Groin pain, piriformis pain with subsequent peripheral sciatica (versus far less likely a lumbar radiculopathy), possible fibromyalgia/chronic pain syndromesee discharge instructions, close PCP follow-up multimodal approach, referrals for OMT, urology, psychology, multiple home therapies outlined. Resident Activity Tracking Resident Involvement: Resident Care Provided Care Provided: Adult [facility]
--- NOTE | 2021-12-06 19:23 | Billing Data ---
Date of Service December 06, 2021 Coding Level of Care Code 30444 OBS Care - Discharge
[2021-12-06] MEDS ORDERED: traZODone HCL 50 MG TAB PO SCH (21:00)
--- NOTE | 2021-12-06 21:26 | Billing Data ---
Date of Service December 06, 2021 Coding Level of Care Code INT OBSERVATION CARE 70M LVL 3
[2021-12-09 15:17] LABS: Babesia microti DNA Not Detected (Not Detected)
[2021-12-10 15:38] LABS: Ehrlichia chaff DNA Bld Negative (Negative)
== END 2021-12-06 04:31 | disposition home or self-care (01) ==
LOC: ED 18:13 → EDINP 18:13 → SUATTDRO 12-06 01:57 → EDINP 12-06 04:30